=== PATIENT | male | born 1965 | race Caucasian/White ===

== ENCOUNTER 2017-07-27 11:57 | Inpatient (IN) | payer MEDICARE ==
[~2017-07-27] VITALS: Ht 188 cm; Wt 113.4 kg
[~2017-07-27 11:57] MED LIST: AMIT75; AMLO10 PO; AMOX500 PO; BENAML10/2 PO; BUPR150ER PO; CLIN300 PO; CLON.2 PO; CLON.3 PO; CLONIDINE; CRUTCH3 USE; Carvedilol6.25 MG PO; DULO30; DULO60 PO; EPIN.3I IM; FAMO20 PO; Flomax0.4 MG PO; GABA600 PO; HYDACE5 PO; HYDMOR2 PO; KETO10 PO; NAPR500 PO; ONDA4 PO; OXYACE10; OXYACE10 PO; OXYACE5T PO; OXYACE7.5T PO; OXYC10ER PO; OXYC10TA19 PO; OXYC30 PO; OXYC30ER PO; OXYC40ER PO; OXYCODONE PO; PROM25 PO; Percocet 5-3251 EACH PO; RXHYDMOR2 PO; RXOXYACE PO; SULTRIDS PO; TAMS.4ER PO; Ultram50 MG PO
[2017-07-27] MEDS ORDERED: CLON.1 PO (12:21)
[2017-07-27] MEDS ORDERED: Omeprazole20 M1 PO (12:21)
[2017-07-27 12:37] LABS: BASOPHILS ABSOLUTE AUTO 0.03 K/mm3 (0.00-0.23); BASOPHILS PERCENT AUTO 1 % (0-2); EOSINOPHILS ABSOLUTE AUTO 0.15 K/mm3 (0.00-0.68); EOSINOPHILS PERCENT AUTO 3 % (0-6); Hematocrit 39.9 % (37.0-53.0); Hemoglobin 13.6 g/dL (13.5-17.5); IMMATURE GRAN ABSOLUTE AUTO 0.01 K/mm3 (0.00-0.10); IMMATURE GRAN PERCENT AUTO 0 % (0-1); LYMPHOCYTES ABSOLUTE AUTO 1.05 K/mm3 (0.84-5.20); LYMPHOCYTES PERCENT AUTO 23 % (21-46); MONOCYTES ABSOLUTE AUTO 0.32 K/mm3 (0.16-1.47); MONOCYTES PERCENT AUTO 7 % (4-13); Mean Corpuscular HGB 35.7 pg (26.0-34.0); Mean Corpuscular HGB Conc 34.1 g/dL (31.5-36.5); Mean Corpuscular Volume 105 fL (80-100); Mean Platelet Volume 10.9 fL (9.1-12.4); NEUTROPHILS ABSOLUTE AUTO 2.94 K/mm3 (1.96-9.15); NEUTROPHILS PERCENT AUTO 65 % (41-73); Platelet Count 110 K/mm3 (150-400); RDW Coefficient Variation 13.4 % (11.7-14.2); RDW Standard Deviation 51.8 fL (35.1-46.3); Red Blood Cell Count 3.81 M/mm3 (4.30-5.90)
[2017-07-27 12:48] LABS: Alanine Aminotransfer (ALT/SGP 57 U/L (12-78); Albumin, Blood 2.6 g/dL (3.4-5.0); Albumin/Globulin Ratio 0.8 (0.8-1.8); Alk Phos 122 U/L (50-136); Anion Gap 7 mmol/L (6-16); Aspartate Aminotrans (AST/SGOT 73 U/L (12-37); Bilirubin, Total 0.5 mg/dL (0.1-1.0); Blood Urea Nitrogen 14 mg/dL (8-24); Bun/Creatinine Ratio 24.1 (12.0-20.0); CO2, Blood 28 mmol/L (21-32); Chloride, Blood 110 mmol/L (98-108); Creatinine, Blood 0.58 mg/dL (0.60-1.20); Globulin, Blood 3.1 g/dL (2.2-4.0); Glomerular Filtration Rate >60 (60-); Glucose, Blood 105 mg/dL (70-99); Potassium, Blood 4.4 mmol/L (3.5-5.5); Sodium, Blood 145 mmol/L (136-145); Total Protein, Blood 5.7 g/dL (6.4-8.2)
[2017-07-27 13:15] LABS: International Normalized Ratio 1.09; Prothrombin Time Results 11.2 Sec (9.7-11.5)
[2017-07-28 05:22] LABS: Hematocrit 35.1 % (37.0-53.0); Hemoglobin 11.9 g/dL (13.5-17.5)
[2017-07-28 05:51] LABS: Anion Gap 8 mmol/L (6-16); Blood Urea Nitrogen 18 mg/dL (8-24); Bun/Creatinine Ratio 27.1 (12.0-20.0); CO2, Blood 28 mmol/L (21-32); Calcium, Blood 8.1 mg/dL (8.5-10.1); Chloride, Blood 107 mmol/L (98-108); Creatinine, Blood 0.66 mg/dL (0.60-1.20); Glomerular Filtration Rate >60 (60-); Glucose, Blood 181 mg/dL (70-99); Potassium, Blood 4.2 mmol/L (3.5-5.5); Sodium, Blood 143 mmol/L (136-145)
[2017-07-28 11:00] LABS: Hematocrit 34.6 % (37.0-53.0); Hemoglobin 11.7 g/dL (13.5-17.5)
[2017-07-28 16:59] LABS: Hematocrit 35.9 % (37.0-53.0); Hemoglobin 12.1 g/dL (13.5-17.5)
[2017-07-28 23:39] LABS: Hematocrit 34.6 % (37.0-53.0); Hemoglobin 11.7 g/dL (13.5-17.5)
[2017-07-29 05:48] LABS: Hematocrit 34.5 % (37.0-53.0); Hemoglobin 11.8 g/dL (13.5-17.5)
[2017-07-29 11:26] LABS: Hematocrit 35.1 % (37.0-53.0); Hemoglobin 11.8 g/dL (13.5-17.5)
[2017-07-29 18:08] LABS: Hematocrit 37.4 % (37.0-53.0); Hemoglobin 12.4 g/dL (13.5-17.5)
[2017-07-29 23:19] LABS: Hematocrit 37.1 % (37.0-53.0); Hemoglobin 12.5 g/dL (13.5-17.5)
[2017-07-31] MEDS ORDERED: LISI20 PO (11:55)
[2017-07-31] MEDS ORDERED: SUCR1 PO (11:57)
[2017-07-31] MEDS ORDERED: Oxazepam10 MG PO (11:58)
== END 2017-07-31 12:30 | disposition home or self-care (01) | DRG 378 ==
LOC: ER 11:57 → PCU 15:29
PROVIDERS: Emergency Medicine; Internal Medicine; Internal Medicine Gastroenterology
PROC: 0DJ08ZZ Inspection of Upper Intestinal Tract, Via Natural or Artificial Opening Endoscopic (ICD-10-PCS; principal; 2017-07-29 17:15)
DX: K28.4 Chronic or unspecified gastrojejunal ulcer with hemorrhage (principal); F10.239 Alcohol dependence with withdrawal, unspecified; T88.6XXA Anaphylactic reaction due to adverse effect of correct drug or medicament properly administered, initial encounter; K20.9 Esophagitis, unspecified; L50.0 Allergic urticaria; D64.9 Anemia, unspecified; I10 Essential (primary) hypertension; F32.9 Major depressive disorder, single episode, unspecified; K21.9 Gastro-esophageal reflux disease without esophagitis; R13.10 Dysphagia, unspecified; F17.210 Nicotine dependence, cigarettes, uncomplicated; G89.29 Other chronic pain; Z98.84 Bariatric surgery status; Z98.0 Intestinal bypass and anastomosis status; T47.1X5A Adverse effect of other antacids and anti-gastric-secretion drugs, initial encounter; Y92.238 Other place in hospital as the place of occurrence of the external cause
CPT/HCPCS: 80048; 80053; 83690; 83735; 85014; 85018; 85025; 85610; 85730; 86850; 86900; 86901; 93005; 93010; 94644; 96361; 96365; 96372; 96375; 99285; C1751; C9113; J0171; J0360; J0696; J1200; J1630; J2060; J2930; J3010; J3411; J3475; J7030; J7042; J7050; J7120

== ENCOUNTER 2018-04-23 15:23 | Emergency (ER) | payer MEDICARE ==
[~2018-04-23] VITALS: Ht 188 cm; Wt 102.1 kg
[~2018-04-23 15:23] MED LIST changes: +CLON.1 PO; +LISI20 PO; +Omeprazole20 M1 PO; +Oxazepam10 MG PO; +SUCR1 PO; +Vibramycin100 MG PO
== END 2018-04-23 16:06 | disposition left against medical advice (07) ==
LOC: ER 15:23
DX: Z53.21 Procedure and treatment not carried out due to patient leaving prior to being seen by health care provider (principal); R10.9 Unspecified abdominal pain; R53.1 Weakness
CPT/HCPCS: 99283

== ENCOUNTER 2018-06-06 12:15 | Inpatient (IN) | payer OTHER ==
[~2018-06-06] VITALS: Ht 185.4 cm; Wt 109.6 kg
[~2018-06-06 12:15] MED LIST changes: -LISI20 PO; +Roxicodone15 MG PO
[2018-06-06 12:51] LABS: BASOPHILS ABSOLUTE AUTO 0.06 K/mm3 (0.00-0.23); BASOPHILS PERCENT AUTO 1 % (0-2); EOSINOPHILS ABSOLUTE AUTO 0.09 K/mm3 (0.00-0.68); EOSINOPHILS PERCENT AUTO 1 % (0-6); Hematocrit 43.3 % (37.0-53.0); IMMATURE GRAN ABSOLUTE AUTO 0.03 K/mm3 (0.00-0.10); IMMATURE GRAN PERCENT AUTO 0 % (0-1); LYMPHOCYTES ABSOLUTE AUTO 2.71 K/mm3 (0.84-5.20); LYMPHOCYTES PERCENT AUTO 33 % (21-46); MONOCYTES ABSOLUTE AUTO 1.11 K/mm3 (0.16-1.47); MONOCYTES PERCENT AUTO 14 % (4-13); Mean Corpuscular HGB 35.9 pg (26.0-34.0); Mean Corpuscular HGB Conc 32.3 g/dL (31.5-36.5); Mean Corpuscular Volume 111 fL (80-100); NEUTROPHILS ABSOLUTE AUTO 4.11 K/mm3 (1.96-9.15); NEUTROPHILS PERCENT AUTO 51 % (41-73); Platelet Count 205 K/mm3 (150-400); RDW Coefficient Variation 13.3 % (11.7-14.2); White Blood Cell Count 8.11 K/mm3 (4.00-11.30)
[2018-06-06 13:07] LABS: Alanine Aminotransfer (ALT/SGP 40 U/L (12-78); Albumin, Blood 1.5 g/dL (3.4-5.0); Albumin/Globulin Ratio 0.3 (0.8-1.8); Alk Phos 315 U/L (50-136); Anion Gap 7 mmol/L (6-16); Aspartate Aminotrans (AST/SGOT 95 U/L (12-37); Bilirubin, Total 1.2 mg/dL (0.1-1.0); Blood Urea Nitrogen 7 mg/dL (8-24); Bun/Creatinine Ratio 8.8 (12.0-20.0); CO2, Blood 22 mmol/L (21-32); Calcium, Blood 7.7 mg/dL (8.5-10.1); Chloride, Blood 102 mmol/L (98-108); Globulin, Blood 4.7 g/dL (2.2-4.0); Glomerular Filtration Rate >60 (60-); Glucose, Blood 79 mg/dL (70-99); Potassium, Blood 5.6 mmol/L (3.5-5.5); Sodium, Blood 131 mmol/L (136-145); Total Protein, Blood 6.2 g/dL (6.4-8.2); Troponin I <0.015 ng/mL (0.000-0.040)
[2018-06-06] MEDS ORDERED: CHLO25 PO (14:34)
[2018-06-06] MEDS ORDERED: FURO40 PO (14:35)
[2018-06-06] MEDS ORDERED: VITAMIN D350000 UNIT PO (14:36)
[2018-06-06] MEDS ORDERED: FOLI1 PO (14:36)
[2018-06-06 15:07] LABS: Bicarbonate Venous 22.8 mmol/L (24.0-30.0); PCO2 Venous 40.6 mmHg (38-42); PO2 Venous 97.8 mmHg (38-42); pH Blood Venous 7.37 (7.34-7.37)
[2018-06-06 15:33] LABS: Source, Urine Catheter
[2018-06-06 15:47] LABS: Blood, Urine Neg (Neg); Glucose Qualitative, Urine Neg (Neg); Ketones, Urine 1+ (Neg); Leukocyte Esterase, Urine 1+ (Neg); Nitrite, Urine Neg (Neg); Protein, Urine 1+ (Neg); Urobilinogen, Urine 1+ (Normal)
[2018-06-06 15:53] LABS: International Normalized Ratio 1.47
[2018-06-06] MEDS ORDERED: LISI20 PO (15:53)
[2018-06-06] MEDS ORDERED: B-1100 MG PO (15:54)
[2018-06-06 15:55] LABS: Appearance, Urine Clear (Clear); Bilirubin, Urine 1+ (Neg); Color, Urine Yellow (P-Yellow)
[2018-06-06 15:57] LABS: Bacteria Few /hpf; Hyaline Casts 0-2 /lpf (0-2); Squamous Epithelial Cells Few /hpf (Few); White Blood Cells, Urine 0-2 /hpf (0-5)
--- NOTE | 2018-06-06 19:26 | NUR ---
Summary/Admit: Assumed care of pt at approx 1600. Hypotensive. Pt receiving albumin and NS. Pt is A&Ox4. Assessing for alcohol abuse per pt report of drinking 3 16oz glasses of wine per day including yesterday 06/05. Pt needs assistance with repositioning Q2H. Called critical lactic acid and hypotensive BP to Dr. Núñez who ordered additional 500mL bolus and lactic will be rechecked by lab. See shift assessment for detailed assessment. 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 Pt currently resting in bed with call light within reach. Denies any further questions, complaints or requests at this time. Report given to bisi MURILLO.
[2018-06-06] MEDS ORDERED: CYAN1000I IM (23:00)
[2018-06-07 06:02] LABS: BASOPHILS ABSOLUTE AUTO 0.02 K/mm3 (0.00-0.23); BASOPHILS PERCENT AUTO 0 % (0-2); EOSINOPHILS ABSOLUTE AUTO 0.07 K/mm3 (0.00-0.68); EOSINOPHILS PERCENT AUTO 2 % (0-6); Hematocrit 32.8 % (37.0-53.0); Hemoglobin 10.8 g/dL (13.5-17.5); IMMATURE GRAN ABSOLUTE AUTO 0.01 K/mm3 (0.00-0.10); IMMATURE GRAN PERCENT AUTO 0 % (0-1); LYMPHOCYTES ABSOLUTE AUTO 1.44 K/mm3 (0.84-5.20); LYMPHOCYTES PERCENT AUTO 32 % (21-46); MONOCYTES ABSOLUTE AUTO 0.55 K/mm3 (0.16-1.47); MONOCYTES PERCENT AUTO 12 % (4-13); Mean Corpuscular HGB 35.8 pg (26.0-34.0); Mean Corpuscular HGB Conc 32.9 g/dL (31.5-36.5); Mean Corpuscular Volume 109 fL (80-100); NEUTROPHILS ABSOLUTE AUTO 2.47 K/mm3 (1.96-9.15); NEUTROPHILS PERCENT AUTO 54 % (41-73); Platelet Count 150 K/mm3 (150-400); RDW Coefficient Variation 13.3 % (11.7-14.2); RDW Standard Deviation 53.9 fL (35.1-46.3); Red Blood Cell Count 3.02 M/mm3 (4.30-5.90); White Blood Cell Count 4.56 K/mm3 (4.00-11.30)
[2018-06-07 06:24] LABS: Alanine Aminotransfer (ALT/SGP 26 U/L (12-78); Albumin/Globulin Ratio 0.7 (0.8-1.8); Alk Phos 208 U/L (50-136); Anion Gap 7 mmol/L (6-16); Aspartate Aminotrans (AST/SGOT 51 U/L (12-37); Bilirubin, Total 1.1 mg/dL (0.1-1.0); Blood Urea Nitrogen 7 mg/dL (8-24); Bun/Creatinine Ratio 8.5 (12.0-20.0); CO2, Blood 25 mmol/L (21-32); Calcium, Blood 7.6 mg/dL (8.5-10.1); Chloride, Blood 104 mmol/L (98-108); Creatinine, Blood 0.83 mg/dL (0.60-1.20); Globulin, Blood 2.9 g/dL (2.2-4.0); Glomerular Filtration Rate >60 (60-); Glucose, Blood 75 mg/dL (70-99); Magnesium, Blood 1.9 mg/dL (1.6-2.4); Potassium, Blood 4.3 mmol/L (3.5-5.5); Sodium, Blood 136 mmol/L (136-145); Total Protein, Blood 4.9 g/dL (6.4-8.2)
--- NOTE | 2018-06-07 06:48 | NUR ---
SUMMARY PT IS LABILE. HE CAN BE IRRITABLE AND ASKING FOR PAIN MEDS THEN ASLEEP BEFORE YOU GET BACK TO THE ROOM WITH MEDS. HE IS VERY WEAK T/O. GOT HIM UP TO VOID AT THE SIDE OF THE BED BUT PT'S KNEES WOULD BUCKLE. EDUCATED PT THAT HE NEEDS TO USE THE BEDPAN. GAVE PYRIDIUM LAST NIGHT FOR BURNING URINATION AND PT DID NOT COMPLAIN ABOUT IT THE REST OF THE NIGHT. GAVE LIBRIUM DURING THE NIGHT FOR CIWA 8 AND PT WAS DEMANDING LIBRIUM. CALL LIGHT IN REACH AND PT CAN USE IT APPROPRIATELY.
--- NOTE | 2018-06-07 07:15 | NUR ---
AM NOTE. ASSUMED CARE OF PT APROX 0700, PT IS A&O BUT DROWSY AND FALLS ALSEEP QUCKILY. PT WAS ADMITTED FOR ENCEPHALOPATHY, THIS HAS IMPROVED. HEART MONITOR INTACT, NSR IN THE 90'S, PT'S BP 101/62. PT HAS GENERALIZED EDEMA T/O, BLE ARE 3+. L/S CLEAR T/O, PT IS 95% ON RA. BT PRESENT AND HYPOACTIVE, ABD IS SOFT AND NONTENDER TO PALP. PT HAS SEVERE ASCITES, ABD IS FIRM AND TENDER TO PALP. PER THE PT'S SISTER THE PT IS "VERY SENSITIVE TO PAIN." THIS HAS BEEN CONFIRMED BY THE PT BEHAVIOUR. CALL LIGHT IN REACH, BED IS LOCKED AND LOW WILL CONTINUE TO MONITOR.
--- NOTE | 2018-06-07 14:40 | NUR ---
PT UPDATE... PT TOLD THIS RN THAT HE WAS DRINKING 3L OF WINE AND 3-4 24 OZ CANS OF BEER A DAY. PT STATED THAT HIS LAST DRINK WAS ON 06/05. SPOKE W/PT'S , SHE STATED THAT HE HAD BEEN MIXING VODKA WITH THE WINE EVERY NIGHT WELL. PT TOLD THIS RN THAT HIS DOCTOR GAVE HIM "LIBRIUM EVERY 2 HOURS AT HOME."
--- NOTE | 2018-06-07 15:06 | NUR ---
PT UPDATE... PT HAD A PARACENTESIS DONE IN THE ROOM, PT TOLERATED THIS WELL. 4L WAS REMOVED. PT'S VSS. AT THE BEDSIDE. CALL LIGHT IN REACH, BED IS LOCKED AND LOW WILL CONTINUE TO MONITOR
[2018-06-07 15:40] LABS: Automated BF WBC Count 0.073 K/mm3 (0-999); Body Fluid WBC Count 73 /mm3 (0-999)
[2018-06-07 15:55] LABS: RBC Count, Body Fluid 38 /mm3 (0-0)
[2018-06-07 15:56] LABS: Appearance, Body Fluid Clear (Clear); Color, Body Fluid L Yellow (None-Yellow)
[2018-06-07 16:15] LABS: Albumin, Body Fluid 0.5 g/dL; Glucose, Body Fluid 91 mg/dL; Lactate Dehydrogenase, Body Fl 33 U/L; Protein, Body Fluid 1.1 g/dL; Triglycerides, Body Fluid 33 mg/dL
[2018-06-07 16:16] LABS: Total Cell Count, Body Fluid 100; pH, Body Fluid 7.5
--- NOTE | 2018-06-07 18:42 | NUR ---
SHIFT SUMMARY. NO ACUTE CHANGES NOTED, PT HAD PARACENTISIS THIS AFTEROON, 4L REMOVED, PT TOLERATED IT WILL. PT HAS BEEN DROWSY ALL SHIFT, CWIA WAS 4. PT MEDICATED PER EMAR FOR ETOH WD AND PAIN. PT HAS STATED IS EXTREAMELY UNHAPPY THAT HE IS NOT GETTING HIS "HOME DOSE" OF PAIN MEDICATION AND LIBRIUM. PT HAS STATED THAT HE WAS GETTING 50MG OF LIBRIUM Q 2 HRS AT HOME. PT HAS HAD FAIMILY AT THE BEDSIDE ALL DAY. PT'S VS HAVE BEEN STABLE T/O SHIFT. PT DENIES ANY CHEST PAIN/PRESSURE, N/V OR INCREASED SOB. WILL CONTINUE TO MONITOR UNTIL REPORT IS GIVEN TO ONCKIMI MURILLO.
--- NOTE | 2018-06-07 20:22 | NUR ---
PT RESTING IN BED. AROUSES FROM SLEEP EASILY TO VOICE. ANSWERS QUESTIONS APPROPRIATELY. WEAK T/O. ENCOURAGING PT TO MOVE TOLERATED TO BUILD STRENGTH. ASSISTING WITH REPOSITIONING MORE THAN LAST NIGHT. NO SIGN OF DISTRESS. CALL LIGHT IN REACH.
[2018-06-08 03:36] LABS: BASOPHILS ABSOLUTE AUTO 0.03 K/mm3 (0.00-0.23); BASOPHILS PERCENT AUTO 1 % (0-2); EOSINOPHILS ABSOLUTE AUTO 0.08 K/mm3 (0.00-0.68); EOSINOPHILS PERCENT AUTO 2 % (0-6); Hematocrit 35.3 % (37.0-53.0); Hemoglobin 11.5 g/dL (13.5-17.5); IMMATURE GRAN ABSOLUTE AUTO 0.02 K/mm3 (0.00-0.10); IMMATURE GRAN PERCENT AUTO 0 % (0-1); LYMPHOCYTES ABSOLUTE AUTO 1.42 K/mm3 (0.84-5.20); LYMPHOCYTES PERCENT AUTO 28 % (21-46); MONOCYTES PERCENT AUTO 12 % (4-13); Mean Corpuscular HGB 35.3 pg (26.0-34.0); Mean Corpuscular HGB Conc 32.6 g/dL (31.5-36.5); Mean Corpuscular Volume 108 fL (80-100); Mean Platelet Volume 10.9 fL (9.1-12.4); NEUTROPHILS ABSOLUTE AUTO 2.98 K/mm3 (1.96-9.15); NEUTROPHILS PERCENT AUTO 58 % (41-73); Platelet Count 153 K/mm3 (150-400); RDW Coefficient Variation 13.2 % (11.7-14.2); Red Blood Cell Count 3.26 M/mm3 (4.30-5.90); White Blood Cell Count 5.13 K/mm3 (4.00-11.30)
[2018-06-08 03:54] LABS: Alanine Aminotransfer (ALT/SGP 24 U/L (12-78); Albumin, Blood 2.2 g/dL (3.4-5.0); Albumin/Globulin Ratio 0.7 (0.8-1.8); Alk Phos 201 U/L (50-136); Anion Gap 6 mmol/L (6-16); Aspartate Aminotrans (AST/SGOT 44 U/L (12-37); Bilirubin, Total 0.9 mg/dL (0.1-1.0); Blood Urea Nitrogen 7 mg/dL (8-24); Bun/Creatinine Ratio 8.9 (12.0-20.0); CO2, Blood 28 mmol/L (21-32); Calcium, Blood 7.8 mg/dL (8.5-10.1); Chloride, Blood 106 mmol/L (98-108); Creatinine, Blood 0.79 mg/dL (0.60-1.20); Globulin, Blood 3.1 g/dL (2.2-4.0); Glomerular Filtration Rate >60 (60-); Glucose, Blood 90 mg/dL (70-99); Potassium, Blood 4.2 mmol/L (3.5-5.5); Sodium, Blood 140 mmol/L (136-145); Total Protein, Blood 5.3 g/dL (6.4-8.2)
--- NOTE | 2018-06-08 06:13 | NUR ---
SUMMARY PT RESTING IN BED. MOOD IS LABILE. HAVE BEEN GIVING OXYCODONE AND FENTANYL FOR PAIN "ALL OVER". ALSO GIVING LIBRIUM PER PT'S REQUEST. CIWA HAS BEEN BELOW 8. CONTINUES TO BE WEAK. WANTS TO GET OOB TO VOID BUT PT WILL NOT EVEN LIFT HIS OWN LEG ON THE BED. NO SIGN OF DISTRESS. CALL LIGHT IN REACH.
--- NOTE | 2018-06-08 12:48 | NUR ---
0800...PT IS A/O BUT C/O PAIN AND DISTRESS IN MOST PLACES BELOW RIB CAGE AND SITES CHANGE. PT INDICATES HE HAS BEEN GETTING MORE PAIN MEDS AT HOME AND IS REQUESTNG MORE MEDS. PT FAMILY IS IN ROOM. PT MEDS PER EMAR WITH ASSISTANCE FROM RANI MURILLO.
--- NOTE | 2018-06-08 12:51 | NUR ---
1050 PT WAS REQUESTING PAIN MED BUT AFTER CLARRIFICATION WITH DR GONZALES AND OBTAINING MEDS PT WAS ASLEEP, NO MEDS GIVE.
--- NOTE | 2018-06-08 12:53 | NUR ---
1250 PT AGAIN REQUESTING PAIN MEDS WITH SAME TYPE OF PAIN ISSUES NOTED BEFORE. PO MEDS GIVEN... SEE EMAR. PT STOOLED SOFT UNFORMED STOOL AND VOIDED. PT IS TAKING PO WELL AND TABS WERE NO PROBLEM. VS NOTED. OLD RUQ PARACENTESIS SITE WAS OOZING AND ADSORBANT DSG PLACE. PT REFUSING LUNCH AT THIS TIME. REMAINS IN ROOM. CALLED TO GIVE REPORT AND PCU WILL NEED TO RETURN THE CALL.
--- NOTE | 2018-06-08 13:33 | NUR ---
REPORT CALLED 1325 TO MAYURI STUDENT NURSE, WILL TRANSFER PT TO PCU-2 [facility].
--- NOTE | 2018-06-08 16:25 | NUR ---
TRANSFER NOTE; ASSUMED CARE OF PT AT 1515, RECEIVED REPORT FROM NANETTE GLUE DRIER OPERATOR. PT ARRIVED VIA BED AND FAMILY WAS ORIENTED TO ROOM, AND STAFF. BED AT LOWEST LEVEL AND CALL LIGHT IS WITHIN REACH
--- NOTE | 2018-06-08 18:38 | NUR ---
SHIFT SUMMARY; PT IS ALERT AND ORIENTED TO SELF, FAMILY, AND SURROUDINGS, HOWEVER, IS UNAWARE OF TIME. IS COOPRATIVE AND ABLE TO FOLLOW DIRECTIONS. LAST CIWA SCORE WAS 8. PT IS CURRENTLY RUNNING IN NSR WITH HR OF 86.PT HAS BEEN COMPLAINING OF PAIN TO HIS ABDOMEN, HIPS AND FEET. PT HAS BEEN MEDICATED PER EMAR AND SEEMS TO HAVE BEEN EFFECTIVE. PT WAS ALSO COMPLAINING OF NAUSEA AND WAS THEN MEDICATED WITH ZOFRAN, WHICH HELPED SETTLE HIS STOMACH. PT HAS PITTING BLE EDEMA AND LEGS ARE BEING ELEVATED WITH PILLOWS. PT RECEIVED A PARACENTHISIS YESTERDAY 06/07/18, AND BANDAGE TO COVER UP INSERTION SITE WAS CHANGED W/ A MEPILEX DRESSING. WILL CONTINUE TO MONITOR STAUS UNTIL REPORT IS GIVEN TO BULK SEALER OPERATOR. BED AT LOWEST LEVEL, CALL LIGHT WITHIN REACH.
--- NOTE | 2018-06-09 02:17 | NUR ---
RESUMED CARE AT 1900 FROM CHIDI BAKER AND SN MAYURI. PT IS ON FULL LIQUID DIET; TAKES SMALL PILLS PO, LARGER PILLS TO BE CRUSHED; PT IS BEDFAST; EGG CRATE ADDED TO MATTRESS FOR COMFORT; USES URINAL IN BED WITH ASSISTANCE; O2 > 95% RA; REPOSITIONED Q 2 HRS AND MORE FREQUENTLY FOR PAIN RELIEF; PAIN MEDS GIVEN PER ORDERS; CIWA Q 4; CALL LIGHT WITHIN REACH; BED IN LOWEST POSITION; WILL CONTINUE TO MONITOR AND ASSESS UNTIL HANDOFF TO DAY SHIFT RN.
[2018-06-09 05:04] LABS: BASOPHILS ABSOLUTE AUTO 0.02 K/mm3 (0.00-0.23); BASOPHILS PERCENT AUTO 1 % (0-2); EOSINOPHILS ABSOLUTE AUTO 0.06 K/mm3 (0.00-0.68); EOSINOPHILS PERCENT AUTO 2 % (0-6); Hematocrit 33.1 % (37.0-53.0); Hemoglobin 11.1 g/dL (13.5-17.5); IMMATURE GRAN PERCENT AUTO 0 % (0-1); LYMPHOCYTES ABSOLUTE AUTO 1.28 K/mm3 (0.84-5.20); LYMPHOCYTES PERCENT AUTO 31 % (21-46); MONOCYTES ABSOLUTE AUTO 0.48 K/mm3 (0.16-1.47); MONOCYTES PERCENT AUTO 12 % (4-13); Mean Corpuscular HGB 35.9 pg (26.0-34.0); Mean Corpuscular HGB Conc 33.5 g/dL (31.5-36.5); Mean Corpuscular Volume 107 fL (80-100); Mean Platelet Volume 10.9 fL (9.1-12.4); NEUTROPHILS ABSOLUTE AUTO 2.29 K/mm3 (1.96-9.15); NEUTROPHILS PERCENT AUTO 55 % (41-73); Platelet Count 134 K/mm3 (150-400); RDW Coefficient Variation 13.4 % (11.7-14.2); RDW Standard Deviation 53.2 fL (35.1-46.3); Red Blood Cell Count 3.09 M/mm3 (4.30-5.90); White Blood Cell Count 4.13 K/mm3 (4.00-11.30)
[2018-06-09 05:27] LABS: Alanine Aminotransfer (ALT/SGP 21 U/L (12-78); Albumin, Blood 2.1 g/dL (3.4-5.0); Albumin/Globulin Ratio 0.8 (0.8-1.8); Alk Phos 165 U/L (50-136); Anion Gap 4 mmol/L (6-16); Aspartate Aminotrans (AST/SGOT 38 U/L (12-37); Bilirubin, Total 1.2 mg/dL (0.1-1.0); Blood Urea Nitrogen 6 mg/dL (8-24); Bun/Creatinine Ratio 9.4 (12.0-20.0); CO2, Blood 28 mmol/L (21-32); Calcium, Blood 7.7 mg/dL (8.5-10.1); Chloride, Blood 108 mmol/L (98-108); Creatinine, Blood 0.64 mg/dL (0.60-1.20); Globulin, Blood 2.8 g/dL (2.2-4.0); Glomerular Filtration Rate >60 (60-); Glucose, Blood 91 mg/dL (70-99); Magnesium, Blood 1.7 mg/dL (1.6-2.4); Sodium, Blood 140 mmol/L (136-145); Total Protein, Blood 4.9 g/dL (6.4-8.2)
--- NOTE | 2018-06-09 06:37 | NUR ---
PT DID NOT SLEEP WELL; C/O PAIN; REPOSITIONED FREQUENTLY AND ADMINISTER MEDICATION PER ORDERS; WILL CONTINUE TO MONITOR AND ASSESS UNTIL HANDOFF TO DAY SHIFT RN.
--- NOTE | 2018-06-09 12:38 | NUR ---
BEGINING OF SHIFT : ASSUMED CARE OF PT AT 0700, RECIVED REPORT FROM LENORA MURILLO. UPON ENTERING ROOM, PT WAS A/O AND SITTING IN CHAIR. PT HAS BEEN AMBULATED TO [facility] WITH 2 PERSON MAX ASSISTANCE. PT HAS NEEDED REPOSITIONING EVERY HOUR. PT IS ABLE TO FOLLOW DIRECTIONS AND IS COOPRATIVE. PT HAS BEEN COMPLAINING OF BLE AND HIP PAIN T/O THE NIGHT AND THIS MORNING. PT HAS BEEN MEDICATIED FOR PAIN PER EMAR. PT IS CURRENTLY ON RA, WITH SATURATIONS ABOVE 90 PERCENT. PT IS LESS DIOPHERETIC TODAY AND IS NOT COMPLAING OF SOB. PT TELE CONFIRMS NSR WITH HR IN THE 80'S. PT WILL BE SEEN BY PALLATIVE CARE TODAY. WILL CONTINUE TO MONITOR FOR CHANGES. FAMILY IN ROOM, CALL LIGHT WITHIN REACH
--- NOTE | 2018-06-09 13:05 | NUR ---
PATIENT PERMISSION PATIENT GAVE THIS STUDENT NURSE PERMISSION TO PROVIDE CARE ON 06/10/2018 FROM [id number].
--- NOTE | 2018-06-09 18:28 | NUR ---
SHIFT SUMMARY: PT IS STATING TO BE HAVING TROUBLE URINATING. HAVE BEEN ENCOURAGING HIM TO TRY AND USE THE URINAL. BLADDER SCAN STATES 13 ML'S. PT SLEPT DURING THE AFTERNOON AND HAS NOT REQUIRED PAIN MEDS. PT SEEMS DROWSY BUT IS EASY TO AROUSE. PT HAS BEEN REPOSITIONED EVERY TWO HOURS AND HAS AMBULATED TO THE COMMODE TWICE WITH 2 PERSON MAX ASSIST PO INTAKE HAS BEEN POOR TODAY. CIWA SCORES HAVE BEEN LOW AND NO NEED TO LIBRIUM WAS INDICATED. WILL CONTINUE TO MONITOR PT UNTIL NEXT SHIFT IS GIVEN REPORT, BED AT LOWEST LEVEL CALL LIGHT WITHIN REACH.
--- NOTE | 2018-06-09 21:37 | NUR ---
ASSUMED CARE OF PT AT APPROXIMATELY 1945. PT ALERT AND ORIENTED TO SELF, SITUATION, TIME, AND FOLLOWING DIRECTIONS. VS STABLE. PT ABLE TO VOID. FAMILY AT BEDSIDE. PT COMPLAINS OF PAIN IN HIS LOWER BACK THAT WAS RELIEVED WITH REPOSITIONING. REPORT GIVEN TO KEEGAN MURILLO.
[2018-06-10 06:15] LABS: BASOPHILS ABSOLUTE AUTO 0.02 K/mm3 (0.00-0.23); BASOPHILS PERCENT AUTO 0 % (0-2); EOSINOPHILS ABSOLUTE AUTO 0.08 K/mm3 (0.00-0.68); EOSINOPHILS PERCENT AUTO 1 % (0-6); Hematocrit 37.4 % (37.0-53.0); Hemoglobin 12.1 g/dL (13.5-17.5); IMMATURE GRAN ABSOLUTE AUTO 0.01 K/mm3 (0.00-0.10); IMMATURE GRAN PERCENT AUTO 0 % (0-1); LYMPHOCYTES ABSOLUTE AUTO 1.32 K/mm3 (0.84-5.20); LYMPHOCYTES PERCENT AUTO 24 % (21-46); MONOCYTES ABSOLUTE AUTO 0.55 K/mm3 (0.16-1.47); MONOCYTES PERCENT AUTO 10 % (4-13); Mean Corpuscular HGB 35.4 pg (26.0-34.0); Mean Corpuscular HGB Conc 32.4 g/dL (31.5-36.5); Mean Corpuscular Volume 109 fL (80-100); Mean Platelet Volume 10.9 fL (9.1-12.4); NEUTROPHILS ABSOLUTE AUTO 3.55 K/mm3 (1.96-9.15); NEUTROPHILS PERCENT AUTO 64 % (41-73); Platelet Count 146 K/mm3 (150-400); RDW Coefficient Variation 13.5 % (11.7-14.2); Red Blood Cell Count 3.42 M/mm3 (4.30-5.90); White Blood Cell Count 5.53 K/mm3 (4.00-11.30)
--- NOTE | 2018-06-10 06:25 | NUR ---
SHIFT SUMMARY PT RESTING IN ROOM AT THIS TIME. PT WAS VERY PAINFUL T/O NIGHT DID NOT SLEEP WELL AND WAS INFORMATICA LIGHT MULITPLE TIMES ASKING FOR PAIN MEDS. PT WAS REPOSITIONED MULTIPLE TIMES FOR COMFORT, AND KPAD WAS APPLIED IN AN ATTEMPT TO MANAGE PAIN BETTER. PT REQUESTED TO GET UP TO RECLINER AT 0400. PT TO RECLINER USING GAIT BELT, TOLERATED WELL. TAB ALARM ON, PT SITTING ON DONUT PILLOW FOR PREVIOUS COCCY FX. NO OTHER CHANGES IN STATUS T/O NIGHT. DENIES SOB. CALL LIGHT IS IN REACH. PT WAS MEDICATED FOR PAIN AND IS NOW SLEEPING.
[2018-06-10 06:34] LABS: Alanine Aminotransfer (ALT/SGP 21 U/L (12-78); Albumin, Blood 2.4 g/dL (3.4-5.0); Albumin/Globulin Ratio 0.7 (0.8-1.8); Alk Phos 162 U/L (50-136); Anion Gap 6 mmol/L (6-16); Aspartate Aminotrans (AST/SGOT 35 U/L (12-37); Bilirubin, Total 0.8 mg/dL (0.1-1.0); Blood Urea Nitrogen 7 mg/dL (8-24); Bun/Creatinine Ratio 10.2 (12.0-20.0); CO2, Blood 30 mmol/L (21-32); Chloride, Blood 106 mmol/L (98-108); Creatinine, Blood 0.69 mg/dL (0.60-1.20); Globulin, Blood 3.3 g/dL (2.2-4.0); Glomerular Filtration Rate >60 (60-); Glucose, Blood 99 mg/dL (70-99); Sodium, Blood 142 mmol/L (136-145); Total Protein, Blood 5.7 g/dL (6.4-8.2)
--- NOTE | 2018-06-10 12:01 | NUR ---
BEGINNING OF SHIFT Assumed care at 0700. Report recieved from Katy MURILLO. Pt on room air. Laying in recliner. Pt states pain from hips to feet. States "neuropathy" and describes it is sharp and burning. Pt has edema from waist to feet, however his penis and scrotum are free of edema. Pt educated on diuresis and how decrease in edema should alleviate pain. Pt verbalizes understanding. Pt cooperative with care. Pt on telemetry at beginning of shift. At this time, pt is medical floor status and telemetry has been removed. Call light in reach. Pt denies need at this time.
--- NOTE | 2018-06-10 12:14 | NUR ---
SKIN CARE During skin assessment, powder added to abdominal and perineal skin folds. These areas were cleaned prior to addition of powder. Folds were moist, however there was no evidence of yeast. Pt educated on reason for powder application, he verbalized understanding.
--- NOTE | 2018-06-10 17:59 | NUR ---
Initial palliative care consult: Pepe is a 52 year old with a history of HTN, cirrohsis of the liver, ETOH, GERD, and gastric surgeries and chronic dysphagia s/p dilation. He reports he would like to have a GI surgery revision if this is possible to correct his dysphagia problems related to what he says are a stricture and scar tissue. Pepe reports that he was forced to quit working in the [employer] several years ago due to a disability. 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 He reports he has always been a stay up at night and sleep in the day person. He reports that at home he spends greater that 75% of his time sitting in the chair. He is having more difficulty walking and has had some falls at home. Met with Pepe in his room this afternoon. Assisted him from chair to bed with two person assist. Pt c/o hip and leg pain 10/21. He is very edematous with anasarca and BLE pitting edema. He had a paracentesis performed yesterday and 4 L of fluid was removed. He states that the edema is getting better but he still remains very swollen. He was started on neurontin yesterday which he states helps his pain but doesn't get him comfortable. Discussed what his goals are: He would like to get well enough to have the GI surgery to repair his problem. He reports that the past several years he can only ingest foods in liquid form (boost, milkshakes and the like.) He reports this diet gets very boring and he doesn't feel much like eating. Will plan to request a fish roe processor consult for pt as his liquid diet and increased protein needs. He reports his edema issue is new and that the paracentesis he had yesterday is the first one he has ever had. He confirms his full code status, but reports that he would not want to be kept alive on machines correction. His sister entered the room during our conversation and Pepe drifted off to sleep while I spoke with his sister. She states that Pepe has struggled with depression ever since his GI surgery has restricted him. She reports he was a social drinker prior to his GI surgery, but she stated that his alcohol intake greatly increased after his GI surgery complications. She reports she lives next door to Pepe. Pepe lives with his and two sons. Pepe's sister states that Pepe's is an active alcoholic. She stated that Pepe's drinking has decreased from a 1/5 per day about a year ago to 4-5 20 oz. drinks per day now. She states he has mentioned that he would like to stop drinking but has never been successful at becoming sober. She states Pepe has tried medication for his depression but she states that she didn't think he took the medication long enough to see if it would work. Spoke with Dr. Davila re: concerns for depression, pain managment and nutritional needs. Dr. Davila stated she would consider changing doses of neurontin possibly tomorrow as this med was started yesterday. Pt may benefit from a higher dose of neurontin at bedtime for better pain relief and sleep at night. Dr. Davila stated that she would address Pepe's depression tomorrow. Pepe did wake up at the end of the visit and state that he had seen a psychologist only once which he felt didn't felt and that he had taken many anti-depressants "That didn't work." When asked how long he had taken them he said "Long enough to know they didn't work." Dr. Davila was agreeable to have a dietary consult placed for nutritional needs. Pepe has a long road ahead of him for recovery. He stated the liver problem is new and he didn't know much about it. His sister is hopeful that he will be able to go to rehab after discharge before he is able to go home and follow up with GI for further care. PC will continue to see pt for disease education and management, symptom management and advanced care planning.
--- NOTE | 2018-06-10 18:54 | NUR ---
SHIFT SUMMARY Pt has remained awake for majority of shift. Pt voiced frustration that he has not been receiving medications for alcohol withdrawal. This RN discussed CIWA scale and indication for medication. This RN also discussed pt's CIWA scores and how they did not indicate the medication was appropriate. This RN discussed sedation and how pain meds would be withheld if pt was sedated. Pt verbalized frustration, but stated he understood why he was not getting librium. Pt's sister spent majority of shift at the pt's bedside. Pt's spouse was not seen visiting this shift. Pt's sister asked if the time that his pain medication becomes available could be written on the whiteboard. This RN stated that this was possible, however the goal is for the pt to taper off opiates and achieve pain control with gabapentin. The sister stated that the pt had been taking oxycodone at home. This RN discussed pt's sedation on admit and narcan administration. Pt's sister verbalized understanding for imporatance of limiting opiate intake. Pt's sister asked if pt could go outside. This RN stated that this was allowed, as pt is not on telemetry. Will continue to monitor until care handoff and bedside report.
--- NOTE | 2018-06-10 19:33 | NUR ---
LEAKAGE FROM PARCENTESIS SITE Pt continues to have leakage from paracentesis site. Dressing was changed at 1600 and ABD pad was placed to absorb drainage. While giving bedside report to Rakesh MURILLO, ABD pad was entirely saturated. This RN removed dressing and placed ostomy wafer and drainage bag over site. Rakesh MURILLO updated.
[2018-06-11 03:46] LABS: BASOPHILS ABSOLUTE AUTO 0.04 K/mm3 (0.00-0.23); BASOPHILS PERCENT AUTO 0 % (0-2); EOSINOPHILS ABSOLUTE AUTO 0.09 K/mm3 (0.00-0.68); EOSINOPHILS PERCENT AUTO 1 % (0-6); Hematocrit 31.6 % (37.0-53.0); Hemoglobin 10.1 g/dL (13.5-17.5); IMMATURE GRAN ABSOLUTE AUTO 0.03 K/mm3 (0.00-0.10); IMMATURE GRAN PERCENT AUTO 0 % (0-1); LYMPHOCYTES ABSOLUTE AUTO 2.41 K/mm3 (0.84-5.20); LYMPHOCYTES PERCENT AUTO 26 % (21-46); MONOCYTES ABSOLUTE AUTO 0.96 K/mm3 (0.16-1.47); MONOCYTES PERCENT AUTO 11 % (4-13); Mean Corpuscular HGB 35.3 pg (26.0-34.0); Mean Corpuscular Volume 111 fL (80-100); Mean Platelet Volume 10.9 fL (9.1-12.4); NEUTROPHILS ABSOLUTE AUTO 5.61 K/mm3 (1.96-9.15); NEUTROPHILS PERCENT AUTO 61 % (41-73); Platelet Count 246 K/mm3 (150-400); RDW Coefficient Variation 13.2 % (11.7-14.2); RDW Standard Deviation 54.1 fL (35.1-46.3); Red Blood Cell Count 2.86 M/mm3 (4.30-5.90); White Blood Cell Count 9.14 K/mm3 (4.00-11.30)
[2018-06-11 04:00] LABS: Anion Gap 4 mmol/L (6-16); Blood Urea Nitrogen 10 mg/dL (8-24); CO2, Blood 29 mmol/L (21-32); Calcium, Blood 7.5 mg/dL (8.5-10.1); Chloride, Blood 109 mmol/L (98-108); Creatinine, Blood 0.77 mg/dL (0.60-1.20); Glomerular Filtration Rate >60 (60-); Glucose, Blood 104 mg/dL (70-99); Magnesium, Blood 1.8 mg/dL (1.6-2.4); Potassium, Blood 4.6 mmol/L (3.5-5.5); Sodium, Blood 142 mmol/L (136-145)
[2018-06-11 04:18] LABS: International Normalized Ratio 1.26; Prothrombin Time Results 13.1 Sec (9.7-11.5)
--- NOTE | 2018-06-11 06:03 | NUR ---
LATE ENTRY 0345 AT START OF SHIFT PT TOOK PO MEDS WITH WATER. ON 2ND MED PT REPORTED THAT IT SEEMED THE "PILL GOT HUNG UP". PT DRANK MORE WATER BUT STATED THAT IT WAS STILL STUCK AND HE FELT LIKE GAGGING. PT VOMITED UP THE WATER HE HAD JUST DRANK BUT NO PILLS WERE NOTICED BY THIS RN. THE LIQUID WAS BLOOD TINGED AT THE TIME. PT REPORTED NO HAVING NOTICED BLOOD DURING THIS ADMIT BUT STATES THIS ISN'T AN UNUSUAL OCCURENCE DUE TO HIS HX OF ESOPHOGEAL STRICTURE. PT HAD NO OTHER BLOODY EMESIS UNTIL AROUND 0300 WHEN PT COMPLAINED OF NAUSEA WITH PAIN OF HIS UPPER MID ABDOMEN. GAVE PT ZOFRAN, HOWEVER AT THAT TIME PT STARTED VOMITING DARK BLOOD. NAUSEA UNRELIEVED BY ZOFRAN AND PT HAD ROUGHLY 200 ML BLOODY OUTPUT. VITALS SHOWED DECREASED BP, ELEVATED HR IN 120'S, AND O2 SATS IN 80'S. PLACED PT ON 4L O2 VIA NC. SPOKE WITH DR DEY WHO ORDERED PT TO BE TRANSFERRED TO ICU. PT WAS ALERT AND ORIENTED THROUGH THE EVENT. DURING TRANSPORT TO ICU, PT CONTINUED TO VOMIT BLOOD. REPORT GIVEN TO CHIDI SPAIN IN ICU.
--- NOTE | 2018-06-11 07:45 | NUR ---
SHIFT ASSESSMENT PT TRANSFERRED FROM PCU 02 TO ICU 13 AT 0320 D/T HEMATEMESIS. PT A&O X4, OCC SLOW TO RESPOND, OCC FORGETFUL, OCC REPEATS QUESTIONS, RESONDS TO VERBAL STIMULI, OPENS EYES SPONT, FOLLOWS COMMANDS. PT FELL ASLEEP AT 0630 THIS AM. PT C/O CHRONIC HX OF N/T IN FINGERS AND BLE'S. PT KULKARNI. WEAKNESS NOTED. PT ASSISTED WITH TURNS. PT REMAINED IN BED. PT C/O ABD PAIN. MEDICATED WITH FENT 50 MCG X1 AND UTILIZED NONPHARM METHODS. REFRAINED FROM ADMINSITERING ADDITIONAL PAIN MEDS D/T BLOOD LOSS AND POTENTIAL WORSENING HYPOTENSION. LUNGS CLEAR, DIMINISHED LOWER LOBES UPON TRANSFER TO ICU. SLIGHTLY COARSE UPPER LOBES, DIMINISHED LOWER LOBES AT THIS TIME. SHALLOW BREATHING. PT ON 4L NC. PT DENIES USING HOME OXYGEN. OXY SAT >90%. RR 14 TO 30'S. DENIES SOB. OCC PRODUCTIVE MOIST COUGH - COPIOUS AMOUNTS OF THICK BLOODY SECRETIONS. AFEBRILE. ST. HR 100'S TO 120'S. BP STABLE - SEE VS FS. MAP REMAINED >65. 2 UNIT FFP INFUSED. 1 UNIT OF PRBC INFUSED. SECOND UNIT OF PRBC INFUSING. INFORMED ONCOMING NURSE OF REPEAT H&H ONCE SECOND UNIT OF PRBC HAS COMPLETED INFUSING. 500 ML NS BOLUS ALSO FINISHED INFUSING. STRONG RADIAL PULSES. FAINT TIBIAL AND PEDAL PULSES. COOL, PALE SKIN. EDEMA BLE'S. SCD'S IN PLACE. HYPOACTIVE BT X4 QUADRANTS. ABD TENDER, FIRM, MOD DIST. N/V. COPIOUS AMOUNTS OF HEMATEMESIS UPON TRANSFER TO ICU. ZOFRAN ADMINISTERED. OCTREOTIDE DRIP AT 25 ML/HR INFUSING. NO N/V AT THIS TIME. COPIOUS AMOUNTS OF LIQUID/MUCOUS RED/MAROON COLORED BM. OSTOMY BAG TO PARACENTESIS SITE TO RUQ - YELLOW OUTPUT WITH WHITE SEDIMENT. NO F/C. NO UO. PIV X3. NS TKO ON STANDBY. BEDBATH COMPLETED. NEW DRESSING TO COCCYX APPLIED. DR. DEY IN ICU MULTIPLE TIMES TO PROVIDE ORDERS AND ASSESS PT. DR. CARCAMO IN ICU THIS AM. DR. CARCAMO ORDERED PICC LINE INSERTION AND LEVOPHED ORDER. WAITING FOR MEDICATION FROM PHARMACY AT THIS TIME. DR. CARCAMO PLANNING TO VERIFY EMAR AND D/C LASIX. PT REPORT PROVIDED TO CHIDI COOPER THIS AM.
--- NOTE | 2018-06-11 08:00 | NUR ---
INITIAL ASSESSMENT PATIENT LYING IN BED, FLAT AFFECT, APPEARS WITHDRAWN. PATIENT ALERT AND ORIENTED X 4. YARD JACKER REPORTED THAT PATIENT HAS OCCASIONAL FORGETFULNESS. PATIENT HAS N/T IN ALL EXTREMITIES- REPORTS THAT THIS IS "NORMAL" FOR HIM. CIWA SCORE OF 2. PATIENT AFEBRILE. PATIENT DECREASED FROM 4 TO 2 L NC AND CONTINUES SATTING 90% AND GREATER. LUNGS CLEAR T/O, DIMINISHED IN LOWER LOBES. PATIENT HAS MOIST, PRODUCTIVE COUGH. PATIENT COUGHING UP MODERATE AMOUNT OF THICK, BLOODY SPUTUM. PATIENT IN ST, HR LOW 100S TO 1-TEENS. BP HYPOTENSIVE TO STABLE. SCDS IN PLACE. 2+ PULSES IN BUES, 1+ PULSES IN BILAT FEET. ABDOMEN MODERATELY DISTENDED, TENDER, WITH HYPOACTIVE BS. YARD JACKER REPORTED THAT PATIENT HAS BEEN HAVING BRIGHT RED EMESIS AND MAROON STOOLS T/O SHIFT. PATIENT STATES HE HAS CONTINUED TO BE NAUSEOUS. PATIENT NPO AT THIS TIME. EXTREMITIES PALE AND COOL. COCCYX REDDENED. RUQ OLD PARACENTESIS SITE LEAKING SEROUS DRAINAGE- OSTOMY BAG IN PLACE. SCATTERED BRUISES NOTED. OCTREOTIDE INFUSING AT 25 MLS/ HOUR, NS TKO. SISTER AT BEDSIDE. BED LOW, CALL LIGHT IN REACH. WILL CONTINUE TO MONITOR PATIENT FREQUENTLY THROUGHOUT SHIFT.
--- NOTE | 2018-06-11 08:45 | NUR ---
CALL PLACED TO DR. LEPE'S OFFICE TO UPDATE ON PATIENT CONDITION AND AMOUNT OF BLOOD COMING FROM BOTH RECTUM AND EMESIS. SYSTEM ARCHIVE ANALYST STATED SHE WOULD GIVE THE DOCTOR THE MESSAGE AND HAVE HIM CALL BACK.
--- NOTE | 2018-06-11 09:30 | NUR ---
INFORMED DR. CARCAMO THAT PATIENT COMPLAINING OF NEUROPATHY IN FEET BUT SOME BPS HAVE BEEN LOW, IS ACTIVELY BLEEDING. ORDER FOR PRN ASPERCREAM OBTAINED. ALSO INFORMED THAT DR. LEPE HAS NOT YET CALLED BACK.
--- NOTE | 2018-06-11 09:51 | NUR ---
DR. LEPE'S OFFICE CALLED AGAIN AND INFORMED THAT DR. CARCAMO STATED IT WAS A CRITICAL CONSULT. CLOSING AGENT STATED SHE WOULD CONTACT ROBERTH AND LET HIM KNOW.
--- NOTE | 2018-06-11 10:43 | NUR ---
DR. LEPE IN ROOM TO SEE PATIENT.
[2018-06-11 11:16] LABS: Hematocrit 23.2 % (37.0-53.0); Hemoglobin 7.8 g/dL (13.5-17.5)
[2018-06-11 11:29] LABS: Source, Urine Catheter
--- NOTE | 2018-06-11 11:29 | NUR ---
GI TEAM IN ROOM TO SET UP FOR SCOPE. SISTER IN ROOM WITH PATIENT.
--- NOTE | 2018-06-11 11:33 | NUR ---
06/11/18 1132 Vargas Kirby History, Chart, Medications and Allergies reviewed before start of procedure.MONITOR INTACT WITH CONTINUOUS PULSE OXIMETRY AND INTERMITTENT BP.3-LEAD EKG REVIEWED WITH PHYSICIAN PRIOR TO START OF PROCEDURE.O2 VIA N/C INTACT THROUGHOUT SEDATION/PROCEDURE. Patient confirms NPO status and agrees with scheduled surgery.See Anesthesia record.
[2018-06-11 11:45] LABS: Appearance, Urine Clear (Clear); Blood, Urine 1+ (Neg); Color, Urine Amber (P-Yellow); Glucose Qualitative, Urine Neg (Neg); Ketones, Urine 1+ (Neg); Leukocyte Esterase, Urine 1+ (Neg); Nitrite, Urine Pos (Neg); Protein, Urine 2+ (Neg); Specific Gravity, Urine 1.025 (1.003-1.022); Urobilinogen, Urine 1+ (Normal)
--- NOTE | 2018-06-11 12:30 | NUR ---
PATIENT RESTING QUIETLY IN BED. PATIENT HAS TEMP OF 99.1 DEGREES FAHRENHEIT. PATIENT HAS BEEN RECEIVING PRN FENTANYL AND ASPERCREAM TO HELP WITH CHRONIC PAIN IN BACK AND IN FEET. PATIENT HAD NOT VOIDED ALL SHIFT. BLADDER SCAN SHOWED OVER 488 MLS IN BLADDER. INFORMED AND ROBERTS PLACED ORDERED. ROBERTS DRAINING TEA COLORED URINE. PATIENT REMAINS SATTING WELL ON [address] NC[address] PATIENT IN ST, HR 1-TEENS TO 120S. BP STABLE. NO OTHER ACUTE CHANGES TO NOTE ON AT THIS TIME. WILL CONTINUE TO MONITOR.
[2018-06-11 12:58] LABS: Bilirubin, Urine 1+ (Neg)
[2018-06-11 13:07] LABS: Red Blood Cells, Urine 0-2 /hpf (0-2); Squamous Epithelial Cells Not Seen /hpf (Few); White Blood Cells, Urine 0-2 /hpf (0-5)
[2018-06-11 13:08] LABS: Bacteria Mod /hpf
[2018-06-11 14:50] LABS: BASOPHILS ABSOLUTE AUTO 0.03 K/mm3 (0.00-0.23); BASOPHILS PERCENT AUTO 0 % (0-2); EOSINOPHILS ABSOLUTE AUTO 0.02 K/mm3 (0.00-0.68); EOSINOPHILS PERCENT AUTO 0 % (0-6); Hematocrit 24.1 % (37.0-53.0); Hemoglobin 8.2 g/dL (13.5-17.5); IMMATURE GRAN ABSOLUTE AUTO 0.03 K/mm3 (0.00-0.10); IMMATURE GRAN PERCENT AUTO 0 % (0-1); LYMPHOCYTES ABSOLUTE AUTO 2.07 K/mm3 (0.84-5.20); LYMPHOCYTES PERCENT AUTO 25 % (21-46); MONOCYTES PERCENT AUTO 12 % (4-13); Mean Corpuscular HGB 34.3 pg (26.0-34.0); Mean Platelet Volume 11.1 fL (9.1-12.4); NEUTROPHILS ABSOLUTE AUTO 5.07 K/mm3 (1.96-9.15); NEUTROPHILS PERCENT AUTO 62 % (41-73); Platelet Count 169 K/mm3 (150-400); RDW Coefficient Variation 20.1 % (11.7-14.2); Red Blood Cell Count 2.39 M/mm3 (4.30-5.90); White Blood Cell Count 8.22 K/mm3 (4.00-11.30)
[2018-06-11 14:52] LABS: Mean Corpuscular Volume 101 fL (80-100)
--- NOTE | 2018-06-11 15:06 | NUR ---
DR. LEPE CALLED AND INFORMED OF CBC LAB RESULTS. STATED THAT PATIENT COULD HAVE CLEAR LIQUID DIET WITH NO RED ITEMS. NO OTHER ORDERS RECEIVED AT THIS TIME. DR. JENSEN WITH HAVING NEXT H&H AT 2130. WILL CONTINUE TO MONITOR.
--- NOTE | 2018-06-11 17:00 | NUR ---
PATIENT RESTING QUIETLY IN BED. FAMILY AT BEDSIDE. PATIENT AFEBRILE. PATIENT GIVEN PRN ZOFRAN FOR COMPLAINT OF NAUSEA. PATIENT GIVEN PRN FENTANYL FOR COMPLAINT OF CHRONIC BACK AND BILAT FOOT PAIN. CIWA SCORE OF 2. PATIENT SATTING 90% AND GREATER ON RA. PATIENT IN SR TO ST, HR 90S TO LOW 100S. BP STABLE. PATIENT COMPLAINING OF EXTREME DISCOMFORT FROM ROBERTS CATHETER. PATIENT WOULD LIKE OUT. DR. CARCAMO NOTIFIED. ROBERTS CATHETER REMOVED AND ORDER PLACED TO BLADDER SCAN NEEDED AND STRAIGHT CATH FOR URINE OVER 450 MLS. PATIENT STATES HE IS MUCH HAPPIER NOW. PATIENT HAS NOT HAD ANY ACTIVE BLEEDING NOTED SINCE SCOPE PERFORMED AND IS TOLERATING CLEAR LIQUIDS WELL THUS FAR. NO OTHER ACUTE CHANGES TO NOTE ON AT THIS TIME. WILL CONTINUE TO MONITOR.
--- NOTE | 2018-06-11 18:56 | NUR ---
SHIFT SUMMARY PATIENT HAS REMAINED MOSTLY ALERT AND ORIENTED T/O SHIFT. PATIENT DID HAVE SOME SLIGHT CONFUSION AFTER SCOPE BUT CLEARED SHORT TIME LATER. PATIENT REMAINS FLAT, WITHDRAWN. FAMILY HAS BEEN IN AND OUT T/O DAY. CIWA SCORE HAS REMAINED AT 2. PATIENT REMAINS WEAK AND HAS REMAINED BEDREST. PATIENT HAD TMAX OF 99.5 DEGREES FAHRENHEIT. PATIENT GIVEN PRN FENTANYL AND ASPERCREAM FOR COMPLAINT OF CHRONIC BACK AND FOOT PAIN. PATIENT HAS REMAINED SATTING WELL ON RA TO 2 L NC. LUNGS HAVE REMAINED CLEAR T/O AND DIMINISHED IN LOWER LOBES. PATIENT WAS COUGHING UP MODERATE AMOUNT OF THICK, BLOODY SECRETIONS FIRST HALF OF SHIFT BUT HAS SINCE DECREASED. PATIENT HAS REMAINED IN SR TO ST, HR 90S TO 120S. PATIENT HYPOTENSIVE THIS AM, AFTER BLOOD ADMINISTRATION BP HAS BEEN STABLE. PATIENT HAD A FEW BMS THIS SHIFT THAT WERE MAROON IN COLOR AND LIQUID/ JELLY IN CONSISTENCY. PATIENT HAD NO EMESIS BUT DID REPORT FEELING NAUSEOUS MOST OF THE DAY. PATIENT HAS NOT HAD ANY BMS SINCE SCOPE. PATIENT NOW TOLERATING CLEAR LIQUID DIET BUT CONTINUES TO HAVE MED DELIVERY PRECAUTIONS BECAUSE OF ESOPHAGEAL STRICTURE. PATIENT HAD ROBERTS IN FOR SHORT TIME, DRAINING TEA COLORED URINE. PATIENT COMPLAINT OF PAIN, DR. PALOMINO, ROBERTS REMOVED. PRN BLADDER SCANS WILL NOW BE PERFORMED AND PATIENT WILL BE STRAIGHT CATHED FOR ANYTHING OVER 450 MLS. PATIENT STATES THAT HE HAS STRUGGLED WITH RETENTION AND USED TO TAKE FLOMAX BUT STOPPED AND DOES NOT REMEMBER WHY HE STOPPED TAKING IT. SCHEDULED FLOMAX STARTED TODAY. NO CHANGE IN SKIN. PATIENT STATES THAT EDEMA IN LEGS IS BETTER THAN IT HAS BEEN. PATIENT HAS BEEN REPOSITIONED T/O SHIFT. NS INFUSING AT 100 MLS/ HOUR, OCREOTIDE AT 25 MLS/ HOUR. BED LOW, CALL LIGHT IN REACH. REPORT HAS BEEN GIVEN TO ASSUMING NURSE.
--- NOTE | 2018-06-11 20:00 | NUR ---
ASSUMED CARE OF PT AT 1915. REPORT RECEIVED. PT PRESENTS IN BED IN NO APPARENT DISTRESS. DO DEMONSTRATE A RATHER FLAT AFFECT. SISTER HAS VOICED THAT PT AT HOME HAS BEEN, IN HER OPINION, "VERY DEPRESSED AND TRYING TO DRINK HIMSELF TO ." PT DOES COMPLAIN OF ABDOMINAL PAIN WHICH HE RATES 3/10. PT TO BE MEDICATED WITH 25 MCG FENTANYL. NO S/S BLEED NOTED. WILL REVIEW CHART AND PLAN OF CARE FOR THIS PT.
[2018-06-11 21:46] LABS: Hematocrit 24.2 % (37.0-53.0)
--- NOTE | 2018-06-11 22:00 | NUR ---
PT STATES THAT HE IS NOT ABLE TO URINATE AND THAT HE FEELS VERY UNCOMFORTABLE. BLADDER SCAN DONE REVEALING >679 ML URINE RETENTION. DID CATH PT WITH 14 VI[place]ESE ROBERTS CATHETER SECONDARY TO NOT HAVING RED RUBBER CATHETER AVAILABLE. HAVE NOTIFIED SUPPLY FOR NEED. PT WAS ABLE TO TOLERATE 14 VIETNAMESE WHILE IT WAS DRAINING. OPTED TO INFLATE BALLOON, AND PLACE CATHETER TO DRAIN TO BEDSIDE BAG. ORDER RECEIVED FOR UROJET FOR COMFORT AND CATHETER TOLERANCE SECONDARY TO PT'S COMPLAINT OF A "STINGING" FEELING AT [place]. AT TIME OBTAINING UROJET PT HAD NO FURTHER COMPLAINTS. WILL USE NEEDED FOR PT COMFORT. PT HAS CALLED CONCERNING HIS BETIME MEDICATION. WHEN INSTRUCTING PT THAT HE HAD RECEIVED HIS ORDERED BEDTIME MEDICATIONS HE INQUIRED ABOUT THE "ONE THROUGH MY IV" WHEN DELVING FURTHER HE SAID THAT IT WAS HIS PAIN SHOT. TEACHING ON FENTANYL THAT IS ORDERED Q 4 HOURS. HE HAD ASKED FOR FENTANYL FOR A "SOUR STOMACHE" THEN FOR HIS KNEES, AND THEN AGAIN FOR HIS FEET. ASPERCREAM APPLIED TO HIS KNEES AND HIS FEET HE USES AT HOME. DID SPEAK TO PT ABOUT WHEN HE WOULD BE AVAILABLE FOR ADDITIONAL DOSE. PT VOICES UNDERSTANDING. WILL CONTINUE TO MONITOR.
--- NOTE | 2018-06-12 02:10 | NUR ---
MEDICATED PT WITH 50 MCG FENTANYL FOR COMPLAINTS OF PAIN 9/10 IN FEET, LEGS, KNEES, HIPS, AND BACK. PT STATES THAT HE WAS STARTED ON NEURONTIN PREVIOUS TO HOSPITAL FOR NEUROPATHY PAIN. PT ALSO STATES THAT HE WAS ORDERED LIBRIUM PREVIOUS TO HOSPITAL BUT DID NOT GET THIS FILLED. SAYS THAT THIS IS DAY FOUR WITHOUT ALCOHOL. 4-5 GLASSES OF WINE PER DAY IS WHAT PT STATES HE CONSUMES. HAVE NOTED PT IS SOMEWHAT FORGETFUL AND PULLS AT HIS LEADS, OXYGEN, AND HAS REMOVED HIS BLOOD PRESSURE CUFF AT TIMES. PT NEEDS TO BE REMINDED NOT TO DO THESE THINGS. PT STATES HE DOES NOT RECALL REMOVING ITEMS. HAS NOT MADE ANY ATTEMPTS TOWARDS HIS IV'S. AGAIN, NO S/S BLEEDING TO NOTE. 2130 HGB RELATIVELY UNCHANGED FROM PREVIOUS VALUE. WILL CONTINUE WITH Q 2 HOUR TURNS IN BED. PT DOES NEED REMINDER THAT HE HAS A CATHETER IN PLACE. HE CLAIMS THAT HE FEELS HE NEEDS TO URINATE AT TIMES. WILL CONTINUE TO MONITOR PT.
[2018-06-12 03:54] LABS: Source, Urine Catheter
[2018-06-12 03:57] LABS: Blood, Urine 5+ (Neg); Glucose Qualitative, Urine Neg (Neg); Ketones, Urine 1+ (Neg); Leukocyte Esterase, Urine 3+ (Neg); Nitrite, Urine Pos (Neg); Protein, Urine 2+ (Neg); Specific Gravity, Urine 1.025 (1.003-1.022); Urobilinogen, Urine 1+ (Normal)
[2018-06-12 04:01] LABS: Appearance, Urine Hazy (Clear); BASOPHILS ABSOLUTE AUTO 0.03 K/mm3 (0.00-0.23); BASOPHILS PERCENT AUTO 0 % (0-2); Bilirubin, Urine 1+ (Neg); Color, Urine Yellow (P-Yellow); EOSINOPHILS ABSOLUTE AUTO 0.05 K/mm3 (0.00-0.68); EOSINOPHILS PERCENT AUTO 1 % (0-6); Hematocrit 24.1 % (37.0-53.0); Hemoglobin 8.1 g/dL (13.5-17.5); IMMATURE GRAN ABSOLUTE AUTO 0.02 K/mm3 (0.00-0.10); IMMATURE GRAN PERCENT AUTO 0 % (0-1); LYMPHOCYTES ABSOLUTE AUTO 2.43 K/mm3 (0.84-5.20); LYMPHOCYTES PERCENT AUTO 31 % (21-46); MONOCYTES ABSOLUTE AUTO 0.82 K/mm3 (0.16-1.47); MONOCYTES PERCENT AUTO 10 % (4-13); Mean Corpuscular HGB 33.9 pg (26.0-34.0); Mean Corpuscular HGB Conc 33.6 g/dL (31.5-36.5); Mean Corpuscular Volume 101 fL (80-100); NEUTROPHILS ABSOLUTE AUTO 4.55 K/mm3 (1.96-9.15); NEUTROPHILS PERCENT AUTO 58 % (41-73); Platelet Count 164 K/mm3 (150-400); RDW Coefficient Variation 19.1 % (11.7-14.2); RDW Standard Deviation 70.4 fL (35.1-46.3); Red Blood Cell Count 2.39 M/mm3 (4.30-5.90)
[2018-06-12 04:15] LABS: Amorphous Mod ({null, 0-Heavy}); Bacteria Many /hpf; Squamous Epithelial Cells Rare /hpf (Few); White Blood Cells, Urine TNTC /hpf (0-5)
[2018-06-12 04:22] LABS: Anion Gap 4 mmol/L (6-16); Blood Urea Nitrogen 14 mg/dL (8-24); Bun/Creatinine Ratio 17.9 (12.0-20.0); CO2, Blood 29 mmol/L (21-32); Calcium, Blood 7.5 mg/dL (8.5-10.1); Chloride, Blood 109 mmol/L (98-108); Creatinine, Blood 0.78 mg/dL (0.60-1.20); Glomerular Filtration Rate >60 (60-); Glucose, Blood 133 mg/dL (70-99); Phosphorus, Blood 3.5 mg/dL (2.5-4.9); Potassium, Blood 4.6 mmol/L (3.5-5.5); Sodium, Blood 142 mmol/L (136-145)
--- NOTE | 2018-06-12 06:02 | NUR ---
PT HAS HAD MOMENTS OF FORGETFULNESS. HAS CLAIMED HE WAS IN THIS RN'S HOME AT TIMES. ONCE SAYING [facility]. PT REORIENTED. WHILE SLEEPING PT'S SATURATIONS WOULD DROP TO 87-[address] O2 AT 1 LITER PER MINUTE PER NASAL CANNULA. PT FREQUENTLY REMOVES CANNULA. CURRENTLY HAS NOT REMOVED IN OVER AN HOUR. SATURATIONS HAVE BEEN MAINTAINING > 90 PERCENT. VSS. ROBERTS CATHETER DRAINS TEA COLORED URINE. OF NOTE: BLADDER SCAN HAD INDICATED PT'S URINE RETENTION WAS > 679 ML. AFTER PLACING ROBERTS, AND TOTALING VOLUME THIS AM, PT HAD ONLY 345 ML URINE OUT. HIGHER VOLUME FROM SCAN MAY REFLECT SOME ASCITES FLUID. PT HAS TOLERATED CATHETER WELL THIS NIGHT. HAS BEEN MEDICATED WITH 50 MCG FENTANYL FOR FEET, LEGS, KNEES, HIPS, AND BACK PAIN. PT RATES PAIN BEFORE LAST DOSING AT 10/10 FROM HAVING BEEN TURNED IN BED. PT CURRENTLY RESTING IN BED WITHOUT COMPLAINTS. HAS CIWA SCORING THAT HAS AVERAGED 8-9 PER SCORING. HAVE STARTED TO NOTE INCREASING TREMORS IN HANDS. WEAK WITH WOOD BOX MAKER. PT, UNFORTUNEATLY WHILE PULLING LEADS, BLOOD PRESSURE CUFF, AND OXYGEN TUBING OFF, MANAGED TO UNDO SEAL ON OSTOMY BAG THAT COVERED PARACENTESIS SITE AND DRAINED BAG ON HIMSELF AND BED. PARTIAL BEDBATH AND LINEN CHANGE DONE. PT HAS SMALL BM THAT WAS BLACK WITH MAROON TARRY IN NATURE. WILL CONTINUE TO MONITOR PT, AND WILL REPORT OFF TO ONCOMING RN.
--- NOTE | 2018-06-12 07:44 | NUR ---
INFORMED DR. CARCAMO OF PATIENT CIWA SCORES BETWEEN 8 AND 9 DURING SHEET METAL MECHANIC. INFORMED THAT PATIENT IS ON CLEAR DIET AND ABOUT POSSIBLY RESUMING GABAPENTIN FOR PATIENT'S COMPLAINT OF CHRONIC NEUROPATHY IN FEET. INFORMED THAT URINE POSITIVE FOR LEUKOCYTES, NITRITES AND BACTERIA. STATED SHE WOULD PUT ORDERS IN.
--- NOTE | 2018-06-12 08:30 | NUR ---
INITIAL ASSESSMENT PATIENT RESTING IN BED. SISTER AT BEDSIDE. PATIENT HAS FLAT AFFECT, WITHDRAWN. PATIENT IS ALERT AND ORIENTED X 4 BUT HAS PERIODS OF CONFUSION. CIWA SCORE OF 5 THIS AM. PATIENT WEAK BUT ABLE TO MOVE ALL EXTREMITIES. PATIENT AFEBRILE. PATIENT COMPLAINS OF CHRONIC FOOT AND BACK PAIN AND ALSO PAIN STOMACH "WHERE ULCER WAS FIXED YESTERDAY". PATIENT IS SATTING WELL ON RA. LUNGS CLEAR T/O, LOWER LOBES DIMINISHED. SHALLOW BREATHS NOTED. PATIENT HAS OCCASIONAL, NONPRODUCTIVE COUGH. PATIENT IN ST, HR LOW 100S TO 1-TEENS. BP STABLE. SCDS IN PLACE. ABDOMEN MODERATELY DISTENDED, SOFT, TENDER TO TOUCH, WITH HYPERACTIVE BS. PATIENT DENIES NAUSEA AT THIS TIME. PATIENT DOES NOT APPEAR TO BE ACTIVELY BLEEDING FROM ANYWHERE. PATIENT HAS BEEN TOLERATING CLEAR LIQUID DIET AND TAKING PRESCRIBED MEDICATIONS WITH NO PROBLEMS OF YET. ROBERTS PLACED BY PATTERN LEASE INSPECTOR, DRAINING TEA COLORED URINE. PATIENT PALE, EDEMATOUS. COCCYX REDDENED. SCATTERED BRUISING NOTED. OSTOMY BAG OVER S/P PARACENTESIS- DRAINING SEROUS FLUID. NS TKO, OCTREOTIDE INFUSING AT 25 MLS/ HOUR. BED LOW, CALL LIGHT IN REACH. SISTER AT BEDSIDE. WILL CONTINUE TO MONITOR PATIENT FREQUENTLY THROUGHOUT SHIFT.
--- NOTE | 2018-06-12 11:42 | NUR ---
PATIENT RESTING IN BED. TWO SISTERS AT BEDSIDE. PATIENT AFEBRILE. PATIENT GIVEN PRN FENTANYL FOR COMPLAINT OF CHRONIC PAIN IN FEET AND KNEES. PATIENT GIVEN PRN ZOFRAN FOR COMPLAINT OF NAUSEA. CIWA OF 10. PATIENT CONTINUES TO HAVE PERIODS OF CONFUSION. PATIENT SATTING 90% OR GREATER ON RA TO 1 L NC. ROBERTS DRAINING ORANGE COLORED URINE. PATIENT HAS HAD 2 LARGE DARK RED BMS THIS SHIFT. H&H SCHEDULED FOR 1400. NO OTHER ACUTE CHANGES TO NOTE ON AT THIS TIME. WILL CONTINUE TO MONITOR.
--- NOTE | 2018-06-12 12:04 | NUR ---
DR. LEPE IN TO SEE PATIENT AND TALK TO PATIENT'S SISTER. INFORMED OF PATIENT'S AMMONIA OF 53 AND THAT PATIENT HAS HAD TWO LARGE BLOODY BMS SO FAR THIS SHIFT. STATED TO INFORM HIM OF H&H RESULTS AT 1700 TODAY. NO ORDERS RECEIVED AT THIS TIME.
[2018-06-12 14:18] LABS: Hematocrit 24.1 % (37.0-53.0)
--- NOTE | 2018-06-12 14:48 | NUR ---
SPOKE TO DR. CARCAMO ABOUT ROBERTS PLACED ON MACHINING AND ASSEMBLY SUPERVISOR. NEW ORDER OBTAINED. INFORMED OF AMMONIA LEVEL OF 53 TODAY AND THAT PATIENT HAS HAD TWO LARGE BLOODY BMS. INFORMED THAT DR. LEPE IS AWARE OF THIS.
--- NOTE | 2018-06-12 14:52 | NUR ---
DR. LEPE IN TO SEE PATIENT. ORDERS RECEIVED.
--- NOTE | 2018-06-12 16:38 | NUR ---
Telephone report received from Lulu Abdi RN, at this time.
--- NOTE | 2018-06-12 16:44 | NUR ---
SHIFT SUMMARY PATIENT RESTING QUIETLY IN BED. AND SISTER AT BEDSIDE. PATIENT AFEBRILE. PATIENT HAS NO COMPLAINTS OF PAIN AT THIS TIME. PATIENT CIWAS 5-10. PATIENT HAS PRN LIBRIUM BUT HAS NOT NEEDED YET. PATIENT CONTINUES TO HAVE PERIODS OF CONFUSION AND ASKING WHERE HE IS. PATIENT HAS BEEN RECEIVING PRN FENTANYL FOR COMPLAINTS OF PAIN IN KNEES/ FEET/ BACK/ "FIXED ULCER". PATIENT STARTED ON SCHEDULED GABAPENTIN. PT WORKED WITH PATIENT IN BED DOING BED EXERCISES. PATIENT REMAINS WEAK AND LETHARGIC. PATIENT HAS REMAINED SATTING WELL ON RA TO 2 L NC. PATIENT HAS REMAINED IN ST, HR LOW 100S TO 120S. BP HAS BEEN STABLE. ABDOMEN DISTENDED, MORE SO THAN YESTERDAY. PATIENT HAS HAD A FEW LARGE LIQUID BMS THIS SHIFT. PATIENT COMPLAINED OF NAUSEA ONE TIME. PATIENT HAS HAD NO APPETITE THIS SHIFT. ROBERTS DRAINING MINIMAL AMOUNT OF ORANGE URINE. DR. CARCAMO NOTIFIED OF MINIMAL OUTPUT. PATIENT STARTED ON ANTIBIOTICS FOR UTI. NO CHANGE IN SKIN. PATIENT REPOSITIONED THROUGHOUT SHIFT. NS TKO. OCREOTIDE DECREASED TO 12.5 MLS/ HOUR. PATIENT RECEIVED BED BATH THIS SHIFT. NO COMPLAINTS AT THIS TIME.
--- NOTE | 2018-06-12 16:50 | NUR ---
PATIENT TRANSFERRED TO PCU O8. REPORT HAS BEEN GIVEN TO ASSUMING NURSE. PATIENT'S SISTER AND WITH PATIENT.
--- NOTE | 2018-06-12 17:07 | NUR ---
VERIFIED OCTREOTIDE GTT AT 12.5 CC/HOUR.
--- NOTE | 2018-06-12 17:51 | NUR ---
The pt was transferred from ICU to PCU 8 at 5 pm. He is drowsy. Answers questions appropriately, knows his name, place, and recognizes family and is following simple directions well. Unable to correctly state the date/time. He is asking for pain medication, but falling asleep mid-conversation. He states that his pain is "all over" . His Nuvia and sister are at the bedside at the time of transfer. He is lying in bed, supine position. Respirations are even, unlabored, but shallow and tachypneic. Telemetry monitoring in place, sinus tachycardia per monitor. The pt is not wearing any oxygen. Abodmen is distended, soft, with a collection bag over what I was told in report is the old paracentesis site on the right side, draining serous fluid. Bear catheter is in place, draining dark orange urine. Pillows were adjusted under his calves to promote reduction of edema in his ankles and feet and for his own comfort.
[2018-06-13 04:26] LABS: BASOPHILS ABSOLUTE AUTO 0.05 K/mm3 (0.00-0.23); BASOPHILS PERCENT AUTO 1 % (0-2); EOSINOPHILS ABSOLUTE AUTO 0.12 K/mm3 (0.00-0.68); EOSINOPHILS PERCENT AUTO 1 % (0-6); Hematocrit 24.5 % (37.0-53.0); Hemoglobin 8.1 g/dL (13.5-17.5); IMMATURE GRAN ABSOLUTE AUTO 0.04 K/mm3 (0.00-0.10); IMMATURE GRAN PERCENT AUTO 0 % (0-1); LYMPHOCYTES ABSOLUTE AUTO 2.45 K/mm3 (0.84-5.20); LYMPHOCYTES PERCENT AUTO 27 % (21-46); MONOCYTES ABSOLUTE AUTO 0.91 K/mm3 (0.16-1.47); MONOCYTES PERCENT AUTO 10 % (4-13); Mean Corpuscular HGB 34.3 pg (26.0-34.0); Mean Corpuscular HGB Conc 33.1 g/dL (31.5-36.5); Mean Platelet Volume 10.9 fL (9.1-12.4); NEUTROPHILS ABSOLUTE AUTO 5.67 K/mm3 (1.96-9.15); NEUTROPHILS PERCENT AUTO 62 % (41-73); Platelet Count 174 K/mm3 (150-400); RDW Coefficient Variation 17.8 % (11.7-14.2); RDW Standard Deviation 67.6 fL (35.1-46.3); Red Blood Cell Count 2.36 M/mm3 (4.30-5.90); White Blood Cell Count 9.24 K/mm3 (4.00-11.30)
[2018-06-13 04:29] LABS: Mean Corpuscular Volume 104 fL (80-100)
[2018-06-13 04:42] LABS: Albumin, Blood 1.8 g/dL (3.4-5.0); Anion Gap 3 mmol/L (6-16); Blood Urea Nitrogen 16 mg/dL (8-24); Bun/Creatinine Ratio 19.4 (12.0-20.0); CO2, Blood 29 mmol/L (21-32); Calcium, Blood 7.5 mg/dL (8.5-10.1); Chloride, Blood 110 mmol/L (98-108); Creatinine, Blood 0.82 mg/dL (0.60-1.20); Glomerular Filtration Rate >60 (60-); Glucose, Blood 120 mg/dL (70-99); Potassium, Blood 4.4 mmol/L (3.5-5.5); Sodium, Blood 142 mmol/L (136-145)
--- NOTE | 2018-06-13 04:51 | NUR ---
SHIFT SUMMARY: PATINT INTERMITTENTLY CONFUSED TO PLACE/TIME/SITUATION, SLEEPY BUT EASILY AROUSED. PATIENT STATES CURRENT PAIN MEDICATIONS DO NOT WORK BUT FALLS ASLEEP WHILE ASKING FOR PAIN MEDICATION. TURNED Q2 HOURS WITH SKIN CARE ADMINISTERED, VSS, CALL LIGHT WITHIN REACH, BED LOW AND LOCKED WITH CALL LIGHT ON.
--- NOTE | 2018-06-13 09:00 | NUR ---
RECEIVED REPORT AND ASSUMED CARE OF PATIENT. HE IS MOANING AND STATES HE IS HAVING PAIN AND WOULD LIKE PAIN MEDICATION. FOLLOWING SCHEDULED MEDICATION ORDERS FOR PATIENT. FAMILY AT BEDSIDE EXPRESSED CONCERN ABOUT PATIENT GOING HOME AND WOULD LIKE TO HAVE HIM GO TO SNF UPON DISCHARGE TO WORK ON BUILDING UP STRENGTH. WILL CONTINUE TO MONITOR AND FOLLOW ORDERS. BED LOCKED AND LOW POSITION, SCD'S ON, CALL LIGHT WITHIN EASY REACH.
--- NOTE | 2018-06-13 12:51 | NUR ---
DR CARCAMO TO SEE PATIENT, SHE ORDERED ALBUMIN AND A VENOUS STUDY OF THE LEFT LE, WARM TO TOUCH AND PAIN NOTED WITH PALPATION. INCREASED EDEMA, LASIX ORDERED TO ADRAI. WILL CONTINUE TO MONITOR AND FOLLOW ORDERS.
--- NOTE | 2018-06-13 14:47 | NUR ---
TRANSFERRED CARE TO CHIDI MEYER PT IS WORKING WITH PT AT THIS TIME.
--- NOTE | 2018-06-13 18:17 | NUR ---
Shift Summary Assumed care of pt at approx 1400. VSS. In no apparent sign of distress. Pt is A&O. No apparent differences noted in pt condition compared to assessment reported by Sowmya MURILLO. C/o pain in abd/stomach upon entering room. Treated with tylenol. When Dr. Barajas rounded on pt, updated that pt having c/o gastric pain, and received order for home dose of nexium pt family to bring in and tums. Pt denies any other acute complaints or requests at this time. Sowmya MURILLO rassumed care of pt at approx 1750.
--- NOTE | 2018-06-13 18:25 | NUR ---
RESUMED CARE OF PATIENT FROM RN JALEN ROBERTS HAS BEEN REMOVED. PT HAS EPISODES OF LETHARGY, BUT WHEN ENGAGED, HE CAN EXPRESS HIS NEEDS APPROPRIATELY. PT SEEN BY DR. LEPE, HE ORDERED TUMS PRN TO ADDRESS PAIN/DISCOMFORT WELL APPROVED PATIENT FAMILY TO BRING IN NEXIUM FOR USE WHILE IN THE HOSPITAL. WILL CONTINUE TO MONITOR AND GIVE REPORT TO NOC RN. BED LOCKED AND LOW, CALL LIGHT WITHIN EASY REACH.
--- NOTE | 2018-06-13 19:50 | NUR ---
ASSUMED CARE PT SLEEPING IN ROOM COMFORTABLY. PER DAY SHIFT PT HAS BEEN LETHARGIC T/O DAY. ROBERTS CATH WAS PULLED LATE IN THE AFTERNOON. PT HAS NOT VOIDED SINCE, PER DAY SHIFT LASIX WAS GIVEN IN THE MORNING BEFORE CATH WAS REMOVED AND PT HAD SIGNIFICANT OUTPUT BEFORE REMOVAL. WILL MONITOR FOR FURTHER URINE OUTPUT. RESP EVEN UNLBOARED ON RA W/ SATS >92% DENIES SOB. DENIES CHEST PAIN. PT APPEARS TO BE RESTING COMFORTABLY. PER DAY SHIFT PT HAS BEEN PAINFUL T/O DAY, WILL MEDICATE PER EMAR NEEDED. CALL LIGHT IS IN REACH.
[2018-06-14 03:51] LABS: BASOPHILS ABSOLUTE AUTO 0.02 K/mm3 (0.00-0.23); BASOPHILS PERCENT AUTO 0 % (0-2); EOSINOPHILS ABSOLUTE AUTO 0.13 K/mm3 (0.00-0.68); EOSINOPHILS PERCENT AUTO 2 % (0-6); Hematocrit 21.9 % (37.0-53.0); IMMATURE GRAN ABSOLUTE AUTO 0.04 K/mm3 (0.00-0.10); IMMATURE GRAN PERCENT AUTO 1 % (0-1); LYMPHOCYTES ABSOLUTE AUTO 1.65 K/mm3 (0.84-5.20); LYMPHOCYTES PERCENT AUTO 30 % (21-46); MONOCYTES ABSOLUTE AUTO 0.58 K/mm3 (0.16-1.47); MONOCYTES PERCENT AUTO 11 % (4-13); Mean Corpuscular HGB 33.8 pg (26.0-34.0); Mean Corpuscular Volume 106 fL (80-100); NEUTROPHILS ABSOLUTE AUTO 3.06 K/mm3 (1.96-9.15); NEUTROPHILS PERCENT AUTO 56 % (41-73); Platelet Count 146 K/mm3 (150-400); RDW Coefficient Variation 16.9 % (11.7-14.2); RDW Standard Deviation 66.2 fL (35.1-46.3); Red Blood Cell Count 2.07 M/mm3 (4.30-5.90); White Blood Cell Count 5.48 K/mm3 (4.00-11.30)
[2018-06-14 04:06] LABS: Anion Gap 5 mmol/L (6-16); Blood Urea Nitrogen 17 mg/dL (8-24); Bun/Creatinine Ratio 19.3 (12.0-20.0); CO2, Blood 30 mmol/L (21-32); Calcium, Blood 7.6 mg/dL (8.5-10.1); Chloride, Blood 110 mmol/L (98-108); Creatinine, Blood 0.88 mg/dL (0.60-1.20); Glomerular Filtration Rate >60 (60-); Glucose, Blood 111 mg/dL (70-99); Phosphorus, Blood 2.6 mg/dL (2.5-4.9); Potassium, Blood 4.1 mmol/L (3.5-5.5); Sodium, Blood 145 mmol/L (136-145)
--- NOTE | 2018-06-14 06:21 | NUR ---
SHIFT SUMMARY PT SLEEPING IN ROOM COMFORTABLY AT THIS TIME. PT WAS PAINFUL T/O NIGHT AND SLEPT OFF AND ON. AT START OF SHIFT IT WAS NOTED THAT URINE CULTURE CAME BACK POSITIVE FOR MRSA. PT WAS PLACED IN ISOLATION AT THIS TIME. PROVIDER CONSULTED AND NO CHANGES MADE TO ABX CURRENT PRESCRIBED. THIS AM W/ LABS HGB WAS LOW AT 7.0. PROVIDER WAS CALLED WITH LEVEL AND 1 UNIT PRBC'S WAS ORDERED FOR TRANSFUSION THIS AM. PROVIDER TO PUT IN ORDER. NO BLOODY EMESIS, AND NO BLOODY STOOL NOTED THIS SHIFT. PT DID HAVE VERY SMALL DRY SMEAR OF DARK STOOL, DID NOT APPEAR TO BE BLACK. BED ALARM IS ON, AND CALL LIGHT IS IN REACH.
--- NOTE | 2018-06-14 07:35 | NUR ---
AM ASSESSMEHNT: Pt resting in bed. Dozing but when he wakes states that he is having 8/10 pain to his knees, legs and back. Informed pt he would be medicated when he could stay awake for my assessment. Pt then woke up much more and answered questions appropriatly. LS clear. HR reg. BT hyperactive, abd distended. States that it is tender to palpation. R Side abd with ostomy bag over paracentisis site, still oozing large amounts of serous fluid. Pt is very pale in appearance. Unit of blood ordered. Will give per orders. +4 edema in BLE. Generalized edema throughout. Call light in reach. Will monitor.
--- NOTE | 2018-06-14 13:00 | NUR ---
update: BLood complete and H+H drawn. Pt up to chair with 2 person assist. Moderate assist needed. Abd seems slightly more distended. Pt C/O abd pain around "my liver". Will notify physician. Pt aslo states that his feet are very painful. Pt denies other needs at this time. VSS. Call light in reach. Family at bedside.
[2018-06-14 13:32] LABS: Hematocrit 23.6 % (37.0-53.0); Hemoglobin 7.4 g/dL (13.5-17.5)
[2018-06-14] MEDS ORDERED: Nexium40 MG PO (16:02)
--- NOTE | 2018-06-14 17:18 | NUR ---
shift summary: Pt dozing in bed at this time. Pt sat up in recliner chair for a few hours today. When assisted back to bed he bacame very light headed and pale. Very small, black smear on pad when he was transfered back to bed, but pt denies feeling like he needs to have a BM. 2nd unit of PRBC running per orders. Pt has an increase in abd pain this shift but denies nausea or need for BM. No other changes with pt this shift. VS have been stable. Minimal changes in edema. Min output from acsities site. Pt voiding dark alea urine. Will report to night rn.
--- NOTE | 2018-06-14 20:00 | NUR ---
ASSUMED CARE PT SLEEPING IN ROOM COMFORTABLY AT THIS TIME. PER DAY SHIFT PT HAD INCREASING ABD PAIN AND SITENTION T.O DAY. PT LOW HGB LEVELS LEAD TO TRANFUSION OF 2 UNITS PRBCS TODAY. HGB CAME UP TO 7.4 AFTER ONE UNIT. NEXT DRAW TO BE DONE NOW AND SENT TO LAB. WILL MONITOR. PT IS PALE AND REPORTS ABD FEELS LIKE THERE IS MORE PRESSURE. PER DAY SHIFT PT HAD NO BLOODY EMESIS OR JO ANN TODAY, BUT DID HAVE VERY SMALL BLACK SMEAR WHEN STANDING W/ PHYSICAL THERAPY TODAY. WILL CONT TO MONITOR SYMPTOMS FOR GI BLEED. PT REPOSITIONED FOR PAIN AT THIS TIME. CALL LIGHT IN REACH, BED ALARM ON.
[2018-06-14 20:35] LABS: Hematocrit 25.6 % (37.0-53.0); Hemoglobin 8.3 g/dL (13.5-17.5)
[2018-06-15 03:54] LABS: BASOPHILS ABSOLUTE AUTO 0.04 K/mm3 (0.00-0.23); BASOPHILS PERCENT AUTO 1 % (0-2); EOSINOPHILS ABSOLUTE AUTO 0.08 K/mm3 (0.00-0.68); EOSINOPHILS PERCENT AUTO 2 % (0-6); Hematocrit 26.6 % (37.0-53.0); Hemoglobin 8.7 g/dL (13.5-17.5); IMMATURE GRAN ABSOLUTE AUTO 0.04 K/mm3 (0.00-0.10); IMMATURE GRAN PERCENT AUTO 1 % (0-1); LYMPHOCYTES ABSOLUTE AUTO 1.57 K/mm3 (0.84-5.20); LYMPHOCYTES PERCENT AUTO 32 % (21-46); MONOCYTES ABSOLUTE AUTO 0.58 K/mm3 (0.16-1.47); MONOCYTES PERCENT AUTO 12 % (4-13); Mean Corpuscular HGB 33.6 pg (26.0-34.0); Mean Corpuscular HGB Conc 32.7 g/dL (31.5-36.5); Mean Platelet Volume 10.7 fL (9.1-12.4); NEUTROPHILS ABSOLUTE AUTO 2.67 K/mm3 (1.96-9.15); NEUTROPHILS PERCENT AUTO 54 % (41-73); Platelet Count 153 K/mm3 (150-400); RDW Coefficient Variation 17.6 % (11.7-14.2); RDW Standard Deviation 65.1 fL (35.1-46.3); Red Blood Cell Count 2.59 M/mm3 (4.30-5.90); White Blood Cell Count 4.98 K/mm3 (4.00-11.30)
[2018-06-15 04:02] LABS: Mean Corpuscular Volume 103 fL (80-100)
[2018-06-15 04:11] LABS: Albumin, Blood 2.2 g/dL (3.4-5.0); Anion Gap 5 mmol/L (6-16); Blood Urea Nitrogen 15 mg/dL (8-24); Bun/Creatinine Ratio 16.7 (12.0-20.0); CO2, Blood 29 mmol/L (21-32); Calcium, Blood 7.6 mg/dL (8.5-10.1); Chloride, Blood 110 mmol/L (98-108); Glomerular Filtration Rate >60 (60-); Glucose, Blood 104 mg/dL (70-99); Phosphorus, Blood 2.9 mg/dL (2.5-4.9); Potassium, Blood 3.9 mmol/L (3.5-5.5); Sodium, Blood 144 mmol/L (136-145)
--- NOTE | 2018-06-15 06:29 | NUR ---
SHIFT SUMMARY PT SLEEPING IN ROOM COMFORTABLY AT THIS TIME. PT HGB STABILIZED EARLY IN SHIFT AND CAME ABOVE 8. PT REPORTS ABD FEELS BETTER, NOT MUCH PAIN BEFORE. ABD REMAINS DISTENDED. NO BLOODY EMESIS OR STOOL NOTED THIS SHIFT. PT BECAME VERY PAINFUL APROX 0300 W/ NEUROPATHY PAIN. PT CONTINUED TO HAVE DIFFICULTY WITH NEUROPATHY PAIN T/O NIGHT. PT EXPRESSING NEED FOR INCREASED GABAPENTIN DOSE FOR BEDTIME. LEGS ELEVATED ON MULTIPLE PILLOWS FOR COMFORT. HAS BEEN MEDICATED PER EMAR, AND EDUCATED ON WHEN NEXT DOSE OF PAIN MED IS AVAILABLE. RESP EVEN UNLABORED ON RA, SLIGHTLY TACHYPNIC WHILE AWAKE. DENIES OTHER NEEDS BEYOUND PAIN MEDS. CALL LIGHT IN REACH.
--- NOTE | 2018-06-15 10:11 | NUR ---
COLOSTOMY BAG COVERING PRIOR PARACENTESIS SITE, DRAINING OF 75 ML.
--- NOTE | 2018-06-15 11:16 | NUR ---
THIS MORNING RECEIVED REPORT FROM CHIDI ALLISON AND ASSUMED CARE OF PATIENT. THIS MORNING, HE IS SITTING UP IN BED, C/O PAIN IN FEET. PT STATES, "MY FEET HURT SO BAD, I NEED MORE OF THE GABEPENTIN." THIS NURSE WROTE CONCERN ON BOARD FOR DR VISIT AND WILL ENSURE DR IS AWARE OF CONCERNS. FAMILY MEMBER CALLED AND STATED PT IS CALLING FAMILY WITH C/O OF PAIN IN FEET AND ASKING THEM TO BRING IN ADDITIONAL MEDICATION. THIS NURSE STATED IT IS THE POLICY OF THE HOSPITAL TO ADMINISTER ALL MEDS THROUGH OUR EMAR AND NO HOME MEDS SHOULD BE GIVEN TO PATIENT. SHE ADDITIONAL REQUESTED TO BRING IN A HOME TENS UNIT TO TRY TO HELP ALLIEVIATE NERVE PAIN IN PT FEET. WILL MENTION THIS POSSIBLE INTERVENTION TO THE DOCTOR WHEN ARRIVE TO UNIT. BED LOCKED AND LOW, CALL LIGHT WITHIN EASY REACH.
--- NOTE | 2018-06-15 12:31 | NUR ---
DR HINOJOSA IN TO SEE PATIENT. SHE IS GOING TO INCREASE HIS GABAPENTIN TO 300 TID. AND BEGIN TO TITRATE THE FENTYNAL DOWN AND BEGIN USING HOME OXY DOSES TO MANAGE PAIN. ENCOURAGED PT TO TRY CREAM FOR LEGS THAT INCLUDE LIDOCANE. STATED HE CAN TRY THE TENS UNIT, BUT IF IT DOES NOT HELP, DISCONTINUE USE. PLACING TRANSFER TO MEDICAL FLOOR.
--- NOTE | 2018-06-15 14:10 | NUR ---
PT SISTER COMES TO NURSE STATION TO VISIT WITH THIS NURSE. SHE HAS TENS UNIT TO DROP OFF FOR PATIENT AND STATES THAT SHE WOULD LIKE TO ENSURE THE SOCIAL WORKERS ARE PLANNING TO DISCHARGE PATIENT TO SNF VS HOME. SHE HAS CONCERNS ABOUT ETOH ABUSE IN HOME AND WANTS TO ENSURE PT HAS PLAN FOR CONTINUED SOBRIETY. WILL CONTINUE TO MONITOR AND FOLLOW ORDERS FOR THE PATIENT.
--- NOTE | 2018-06-15 18:38 | NUR ---
PT HAD A GOOD DAY TODAY, HE WAS UP IN THE CHAIR FOR MOST OF THE SHIFT. HE EXPRESSED THAT IT FELT GOOD TO BE UP AND HE IS FEELING A LITTLE BETTER, BUT STATES THAT HE FEELS VERY WEAK AND IS NOT STRONG ENOUGH TO BE ON HIS OWN AT HOME. THE POC IS FOR THIS PATIENT TO BE D/C'D TO SNF WHEN HE IS WELL, WE ARE BEGINNING TO TITRATE OFF OF FENTYNAL PER ASHISH'S ORDERS AND WILL START TO GIVE HOME MED OF OXY AT 10 MG TO START AND MONITOR EFFECT TO ENSURE NO MENTATION CHANGES WITH RESTART OF MEDICATION. PT HAS MANY INTERVENTIONS AVALIABLE FOR THE PAIN IN HIS FEET INCLUDING ASPERCREAM WITH LIDOCANE, TENS UNIT AND INCREASED GABEPENTIN MEDICATION. HAD LONG DISCUSSION WITH PATIENT ABOUT PLAN OF CARE AND WILL CONTINUE TO MONITOR AND GIVE REPORT TO NOC RN. BED LOCKED AND LOW, CALL LIGHT IN EASY REACH.
--- NOTE | 2018-06-16 05:43 | NUR ---
SUMMARY PT REQUIRING IV AND PO PAIN MEDS TONIGHT.BLADDER SCANNED PT HE HAD NOT VOID WITH REPORTED MINIMAL URGE TO VOID. SCANNED FOR > 924 ALTHOUGH UNCLEAR IF COMPLETELY ACCURATE DUE TO ASCITES. PT VERB HE WOULD NOT BE WILLING TO BE CATHED REGARDLESS. LACE CUTTER AND RN ASSISTED PT TO BEDSIDE COMMODE AND PT WAS ABLE TO VOID 400 ML TEA COLORED URINE.PT BEING MED STATUS WTIH NO TELE AND PCU BED NEEDED. PT WAS TRANSFERRED TO 362 PER BED LACE CUTTER AND NURSE IN ATTENDANCE REPORTED TO [place].PT ALERT AND TALKATIVE ON TRANSFER.
--- NOTE | 2018-06-16 06:49 | NUR ---
PCU TRANSFER PT. RECIEVED AT 0500. HE IS AAOX4. RESP EVEN AND UNLABORED. HE IS PLEASANT AND COOPERATIVE. COMPLAINED OF EXTREME PAIN IN LEGS AND WAS TREATED PER EMAR TO GOOD EFFECT. PT IS CURRENTLY SLEEPING LIGHTLY. APPEARS IN NO ACUTE DISTRESS. WILL CONTINUE TO MONITOR.
[2018-06-16 10:16] LABS: BASOPHILS ABSOLUTE AUTO 0.06 K/mm3 (0.00-0.23); BASOPHILS PERCENT AUTO 1 % (0-2); EOSINOPHILS PERCENT AUTO 2 % (0-6); Hematocrit 29.3 % (37.0-53.0); Hemoglobin 9.6 g/dL (13.5-17.5); IMMATURE GRAN ABSOLUTE AUTO 0.03 K/mm3 (0.00-0.10); IMMATURE GRAN PERCENT AUTO 0 % (0-1); LYMPHOCYTES ABSOLUTE AUTO 2.04 K/mm3 (0.84-5.20); LYMPHOCYTES PERCENT AUTO 30 % (21-46); MONOCYTES ABSOLUTE AUTO 0.65 K/mm3 (0.16-1.47); MONOCYTES PERCENT AUTO 10 % (4-13); Mean Corpuscular HGB 33.9 pg (26.0-34.0); Mean Corpuscular HGB Conc 32.8 g/dL (31.5-36.5); Mean Corpuscular Volume 104 fL (80-100); NEUTROPHILS ABSOLUTE AUTO 3.84 K/mm3 (1.96-9.15); NEUTROPHILS PERCENT AUTO 57 % (41-73); Platelet Count 185 K/mm3 (150-400); RDW Coefficient Variation 17.2 % (11.7-14.2); Red Blood Cell Count 2.83 M/mm3 (4.30-5.90); White Blood Cell Count 6.72 K/mm3 (4.00-11.30)
--- NOTE | 2018-06-16 15:30 | NUR ---
SPOKE WITH DR. RAZO AT BEDSIDE. NOTIFIED HIM THAT PATIENT HAS HAD 2 RED/MAROON STOOLS. ORDERS TO GET CBC AT 1700.
[2018-06-16 17:33] LABS: BASOPHILS ABSOLUTE AUTO 0.03 K/mm3 (0.00-0.23); BASOPHILS PERCENT AUTO 1 % (0-2); EOSINOPHILS ABSOLUTE AUTO 0.07 K/mm3 (0.00-0.68); EOSINOPHILS PERCENT AUTO 2 % (0-6); Hematocrit 23.5 % (37.0-53.0); Hemoglobin 7.7 g/dL (13.5-17.5); IMMATURE GRAN ABSOLUTE AUTO 0.01 K/mm3 (0.00-0.10); IMMATURE GRAN PERCENT AUTO 0 % (0-1); LYMPHOCYTES PERCENT AUTO 30 % (21-46); MONOCYTES ABSOLUTE AUTO 0.54 K/mm3 (0.16-1.47); MONOCYTES PERCENT AUTO 12 % (4-13); Mean Corpuscular HGB 33.8 pg (26.0-34.0); Mean Corpuscular HGB Conc 32.8 g/dL (31.5-36.5); Mean Corpuscular Volume 103 fL (80-100); NEUTROPHILS ABSOLUTE AUTO 2.56 K/mm3 (1.96-9.15); NEUTROPHILS PERCENT AUTO 56 % (41-73); Platelet Count 146 K/mm3 (150-400); RDW Coefficient Variation 17.2 % (11.7-14.2); RDW Standard Deviation 63.3 fL (35.1-46.3); Red Blood Cell Count 2.28 M/mm3 (4.30-5.90); White Blood Cell Count 4.61 K/mm3 (4.00-11.30)
--- NOTE | 2018-06-16 18:48 | NUR ---
PATIENT A/OX4, UP WITH 2 MAX ASSIST TO CHAIR. PARACENTESIS DONE TODAY AND 8.9 LITERS OF FLUID REMOVED. REPLACING ALBUMIN PER PHARMACY. PATIENT HAD 2 LIQUID BLOODY STOOLS. CBC REPEATED AND H/H DROPPED, DR. RAZO NOTIFIED AND ORDERED 1 UNIT OF BLOOD WITH H/H TO FOLLOW TRANSFUSION. PATIENT REPORTS SEVERE PAIN THROUGHOUT THE SHIFT, OXYCODONE GIVEN Q6 HOURS AND FENTANYL X1. FENTANYL AVAIALBLE FOR MORE DOSE. PATIENT HAS MEPILEX TO COCCYX DUE TO REDNESS. CHANGED TO PUREE DIET AND TOLERATING. CALM AND COOPERTIVE WITH CARE.
[2018-06-17 01:12] LABS: BASOPHILS ABSOLUTE AUTO 0.03 K/mm3 (0.00-0.23); BASOPHILS PERCENT AUTO 1 % (0-2); EOSINOPHILS ABSOLUTE AUTO 0.05 K/mm3 (0.00-0.68); EOSINOPHILS PERCENT AUTO 1 % (0-6); Hematocrit 23.9 % (37.0-53.0); Hemoglobin 7.7 g/dL (13.5-17.5); IMMATURE GRAN ABSOLUTE AUTO 0.01 K/mm3 (0.00-0.10); IMMATURE GRAN PERCENT AUTO 0 % (0-1); LYMPHOCYTES ABSOLUTE AUTO 1.28 K/mm3 (0.84-5.20); LYMPHOCYTES PERCENT AUTO 31 % (21-46); MONOCYTES ABSOLUTE AUTO 0.42 K/mm3 (0.16-1.47); MONOCYTES PERCENT AUTO 10 % (4-13); Mean Corpuscular HGB 32.6 pg (26.0-34.0); Mean Corpuscular HGB Conc 32.2 g/dL (31.5-36.5); Mean Corpuscular Volume 101 fL (80-100); Mean Platelet Volume 10.8 fL (9.1-12.4); NEUTROPHILS PERCENT AUTO 57 % (41-73); Platelet Count 146 K/mm3 (150-400); RDW Coefficient Variation 17.2 % (11.7-14.2); RDW Standard Deviation 61.5 fL (35.1-46.3); Red Blood Cell Count 2.36 M/mm3 (4.30-5.90); White Blood Cell Count 4.19 K/mm3 (4.00-11.30)
[2018-06-17 05:27] LABS: BASOPHILS ABSOLUTE AUTO 0.04 K/mm3 (0.00-0.23); BASOPHILS PERCENT AUTO 1 % (0-2); EOSINOPHILS ABSOLUTE AUTO 0.06 K/mm3 (0.00-0.68); EOSINOPHILS PERCENT AUTO 2 % (0-6); Hematocrit 24.2 % (37.0-53.0); IMMATURE GRAN ABSOLUTE AUTO 0.02 K/mm3 (0.00-0.10); IMMATURE GRAN PERCENT AUTO 1 % (0-1); LYMPHOCYTES ABSOLUTE AUTO 1.21 K/mm3 (0.84-5.20); LYMPHOCYTES PERCENT AUTO 29 % (21-46); MONOCYTES ABSOLUTE AUTO 0.43 K/mm3 (0.16-1.47); MONOCYTES PERCENT AUTO 10 % (4-13); Mean Corpuscular HGB 33.8 pg (26.0-34.0); Mean Corpuscular HGB Conc 33.1 g/dL (31.5-36.5); Mean Corpuscular Volume 102 fL (80-100); Mean Platelet Volume 10.7 fL (9.1-12.4); NEUTROPHILS ABSOLUTE AUTO 2.37 K/mm3 (1.96-9.15); NEUTROPHILS PERCENT AUTO 57 % (41-73); Platelet Count 145 K/mm3 (150-400); RDW Coefficient Variation 17.3 % (11.7-14.2); RDW Standard Deviation 63.7 fL (35.1-46.3); Red Blood Cell Count 2.37 M/mm3 (4.30-5.90); White Blood Cell Count 4.13 K/mm3 (4.00-11.30)
[2018-06-17 05:46] LABS: Anion Gap 4 mmol/L (6-16); Blood Urea Nitrogen 14 mg/dL (8-24); Bun/Creatinine Ratio 18.8 (12.0-20.0); CO2, Blood 29 mmol/L (21-32); Calcium, Blood 7.5 mg/dL (8.5-10.1); Chloride, Blood 108 mmol/L (98-108); Creatinine, Blood 0.74 mg/dL (0.60-1.20); Glomerular Filtration Rate >60 (60-); Glucose, Blood 93 mg/dL (70-99); Potassium, Blood 3.4 mmol/L (3.5-5.5); Sodium, Blood 141 mmol/L (136-145)
--- NOTE | 2018-06-17 06:45 | NUR ---
SHIFT SUMMARY PT AWAKE ON/OFF T/O NIGHT. AOX4. DENIES NAUSEA OR SOB. REPORTS 5-9/10 PAIN IN BLE THAT RAIDIATES FROM HIPS TO TOES & STATES IT IS DUE TO CHRONIC NEUROPATHY. MEDICATED 1X W/FANTANYL, 2X W/OXYCODONE & W/ASPERCREME PER ORDERS. REPORTED FEELING AGITATED & ANXIOUS, THEREFORE WAS MEDICATED W/LIBRIUM PER ORDERS FOR A CIWA SCORE OF 5. 1 UNIT OF RBC WAS GIVEN PER ORDERS LAST NIGHT. CALL LIGHT IS IN REACH & PT USES IT APPROPRIATELY.
--- NOTE | 2018-06-17 18:18 | NUR ---
PATIENT A/O X4, UP WITH 2 ASSIST AND FWW TO CHAIR/BSC. VOIDING IN URINAL. 2 BM'S THIS SHIFT, LAST ONE LOOSE AND BROWN. PICC LINE TO R UPPER ARM WNL AND SL BETWEEN MEDS. ALBUMIN GIVEN THIS AM. TAKES PILLS ONE AT A TIME WITH WATER. TOLERATING PUREE DIET. OSTOMY BAG OVER PARACENTESIS SITE TO CATCH DRAIANGE. MEPILEX TO COCCYX FOR PROTECTION ONLY. PAIN LEVEL HIGH THROUGHOUT THIS SHIFT DESPITE MEDICATIONS. OXYCODONE GIVEN Q6 HOURS AND ASPERCREME PATCHES TO FEET. FAMILY AT BEDSIDE FOR MOST OF SHIFT AND ARE VERY SUPPORTIVE. PATIENT CALLS FREQUENTLY AND IS VERY ANXIOUS AT TIMES. LIBRIUM GIVEN X1 THIS SHIFT.
[2018-06-18 04:50] LABS: Hematocrit 25.6 % (37.0-53.0); Hemoglobin 8.5 g/dL (13.5-17.5); Mean Corpuscular HGB Conc 33.2 g/dL (31.5-36.5); Mean Corpuscular Volume 102 fL (80-100); Mean Platelet Volume 11.2 fL (9.1-12.4); Platelet Count 150 K/mm3 (150-400); RDW Coefficient Variation 16.7 % (11.7-14.2); RDW Standard Deviation 62.8 fL (35.1-46.3); White Blood Cell Count 4.48 K/mm3 (4.00-11.30)
[2018-06-18 05:06] LABS: Anion Gap 5 mmol/L (6-16); Blood Urea Nitrogen 13 mg/dL (8-24); Bun/Creatinine Ratio 18.9 (12.0-20.0); CO2, Blood 29 mmol/L (21-32); Calcium, Blood 7.4 mg/dL (8.5-10.1); Chloride, Blood 108 mmol/L (98-108); Creatinine, Blood 0.69 mg/dL (0.60-1.20); Glomerular Filtration Rate >60 (60-); Glucose, Blood 105 mg/dL (70-99); Potassium, Blood 3.5 mmol/L (3.5-5.5); Sodium, Blood 142 mmol/L (136-145)
--- NOTE | 2018-06-18 07:30 | NUR ---
a+o, pain not fully controlled with home medications or with prescriptions, call light in reach, medicated as prescribed, saline locked, room air, walking rounds completed with day staff.
--- NOTE | 2018-06-18 17:05 | NUR ---
SHIFT SUMMARY PATIENT HAS GOTTEN PROGRESSIVELY MORE RELAXED TODAY. APPEARS TO BE TOELRATING THE INCREASE IN GABAPENTIN WITH NO ISSUES.
[2018-06-19 05:46] LABS: Anion Gap 6 mmol/L (6-16); Blood Urea Nitrogen 14 mg/dL (8-24); CO2, Blood 28 mmol/L (21-32); Calcium, Blood 7.7 mg/dL (8.5-10.1); Chloride, Blood 107 mmol/L (98-108); Creatinine, Blood 0.67 mg/dL (0.60-1.20); Glomerular Filtration Rate >60 (60-); Glucose, Blood 113 mg/dL (70-99); Potassium, Blood 3.5 mmol/L (3.5-5.5); Sodium, Blood 141 mmol/L (136-145)
--- NOTE | 2018-06-19 07:12 | NUR ---
a+o, pain not controlled with prescribed medication, call light in reach, report given to returning day shift, saline locked, roon air
--- NOTE | 2018-06-19 16:19 | NUR ---
SHIFT SUMMARY PATIENT HAS BEEN MUCH MORE AWAKE TODAY. HIS PAIN APPEARS ADEQUATELY CONTROLLED WITH THE PRN MEDICATIONS AND GABAPENTIN. UP WITH 1 PERSON MAX ASSIST (SON ASSISTING) TO BATHROOM. FREQUENT BM'S. GIVING EDUCATION ON THE IMPORTANCE OF USING LACTULOSE.
--- NOTE | 2018-06-19 18:32 | NUR ---
SHIFT SUMMARY PATIENT FAMILY ALERTED THIS RN TO PATIENT BEING VERY DROWSY. BILATERAL HANDS EQUAL IN RENAL TECHNICIAN. FEET EQUAL REACTIVE. EYES EQUAL AND REACTIVE. CONVERSIVE WITH STAFF APPROPRIATE.
[2018-06-20 04:58] LABS: BASOPHILS ABSOLUTE AUTO 0.05 K/mm3 (0.00-0.23); BASOPHILS PERCENT AUTO 1 % (0-2); EOSINOPHILS ABSOLUTE AUTO 0.09 K/mm3 (0.00-0.68); EOSINOPHILS PERCENT AUTO 2 % (0-6); Hematocrit 30.2 % (37.0-53.0); Hemoglobin 9.9 g/dL (13.5-17.5); IMMATURE GRAN ABSOLUTE AUTO 0.04 K/mm3 (0.00-0.10); IMMATURE GRAN PERCENT AUTO 1 % (0-1); LYMPHOCYTES ABSOLUTE AUTO 1.25 K/mm3 (0.84-5.20); LYMPHOCYTES PERCENT AUTO 25 % (21-46); MONOCYTES ABSOLUTE AUTO 0.55 K/mm3 (0.16-1.47); MONOCYTES PERCENT AUTO 11 % (4-13); Mean Corpuscular HGB 33.6 pg (26.0-34.0); Mean Corpuscular HGB Conc 32.8 g/dL (31.5-36.5); Mean Corpuscular Volume 102 fL (80-100); Mean Platelet Volume 11.3 fL (9.1-12.4); NEUTROPHILS ABSOLUTE AUTO 3.03 K/mm3 (1.96-9.15); NEUTROPHILS PERCENT AUTO 60 % (41-73); Platelet Count 142 K/mm3 (150-400); RDW Coefficient Variation 16.2 % (11.7-14.2); RDW Standard Deviation 61.4 fL (35.1-46.3); Red Blood Cell Count 2.95 M/mm3 (4.30-5.90); White Blood Cell Count 5.01 K/mm3 (4.00-11.30)
[2018-06-20 05:16] LABS: Anion Gap 4 mmol/L (6-16); Blood Urea Nitrogen 14 mg/dL (8-24); Bun/Creatinine Ratio 20.2 (12.0-20.0); CO2, Blood 33 mmol/L (21-32); Chloride, Blood 106 mmol/L (98-108); Creatinine, Blood 0.69 mg/dL (0.60-1.20); Glomerular Filtration Rate >60 (60-); Glucose, Blood 76 mg/dL (70-99); Potassium, Blood 3.7 mmol/L (3.5-5.5); Sodium, Blood 143 mmol/L (136-145)
--- NOTE | 2018-06-20 07:16 | NUR ---
somnolent, call light in reach, saline locked, room air, walking rounds completed with day staff
[2018-06-20 11:39] LABS: U Amphetamine Screen Not Detected; U Barbituate Screen Not Detected; U Benzodiazapine Screen DETECTED; U Buprenorphine Screen Not Detected; U Cannabinoids Screen Not Detected; U Cocaine Screen Not Detected; U Methadone Screen Not Detected; U Methamphetamine Screen Not Detected; U Opiates Screen Not Detected; U Oxycodone Screen DETECTED; U Phencyclidine Screen Not Detected; U Propoxyphene Screen Not Detected
--- NOTE | 2018-06-20 13:16 | NUR ---
PT SITTING ON EDGE OF BED C/O "I ATE TOO MUCH AND IT'S SITTING ON MY STRICTURE" AIRWAY PATENT NO LABORED BREATHING. REFUSED OFFER FOR NAUSEA MEDICATION.
--- NOTE | 2018-06-20 19:25 | NUR ---
SHIFT SUMMARY PATIENT IS ALERT AND ORIENTED. HE COMPLAINS OF PAIN WHICH IS BEING TREATED WITH ORDERED OXYCODONE. HIS SISTER HAS SPENT MOST OF THE DAY WITH HIM. 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 BECAUSE OF THIS WE HAVE BEEN AVOIDING MEDS WHOLE WITH WATER AND RATHER TRYING TO USE APPLESAUCE AND CRUSHING/OPENING PILLS IF POSSIBLE. HE SPENT MOST OF THE AFTERNOON IN HIS CHAIR WATCHING TELEVISION.
[2018-06-21 04:51] LABS: BASOPHILS ABSOLUTE AUTO 0.06 K/mm3 (0.00-0.23); BASOPHILS PERCENT AUTO 1 % (0-2); EOSINOPHILS ABSOLUTE AUTO 0.09 K/mm3 (0.00-0.68); EOSINOPHILS PERCENT AUTO 2 % (0-6); Hematocrit 28.6 % (37.0-53.0); Hemoglobin 9.2 g/dL (13.5-17.5); IMMATURE GRAN ABSOLUTE AUTO 0.01 K/mm3 (0.00-0.10); IMMATURE GRAN PERCENT AUTO 0 % (0-1); LYMPHOCYTES ABSOLUTE AUTO 1.51 K/mm3 (0.84-5.20); LYMPHOCYTES PERCENT AUTO 27 % (21-46); MONOCYTES ABSOLUTE AUTO 0.57 K/mm3 (0.16-1.47); MONOCYTES PERCENT AUTO 10 % (4-13); Mean Corpuscular HGB 32.9 pg (26.0-34.0); Mean Corpuscular HGB Conc 32.2 g/dL (31.5-36.5); Mean Corpuscular Volume 102 fL (80-100); Mean Platelet Volume 11.5 fL (9.1-12.4); NEUTROPHILS ABSOLUTE AUTO 3.32 K/mm3 (1.96-9.15); NEUTROPHILS PERCENT AUTO 60 % (41-73); Platelet Count 191 K/mm3 (150-400); RDW Coefficient Variation 16.1 % (11.7-14.2); RDW Standard Deviation 60.7 fL (35.1-46.3); White Blood Cell Count 5.56 K/mm3 (4.00-11.30)
[2018-06-21 05:07] LABS: Anion Gap 4 mmol/L (6-16); Blood Urea Nitrogen 16 mg/dL (8-24); Bun/Creatinine Ratio 21.7 (12.0-20.0); CO2, Blood 34 mmol/L (21-32); Chloride, Blood 104 mmol/L (98-108); Creatinine, Blood 0.74 mg/dL (0.60-1.20); Glomerular Filtration Rate >60 (60-); Glucose, Blood 82 mg/dL (70-99); Magnesium, Blood 1.9 mg/dL (1.6-2.4); Potassium, Blood 3.7 mmol/L (3.5-5.5); Sodium, Blood 142 mmol/L (136-145)
--- NOTE | 2018-06-21 05:52 | NUR ---
SHIFT SUMMARY PT SLEPT WELL T/O NIGHT. AOX4. VSS. DENIES NAUSEA OR SOB. REPORTED DIFFICULTY SLEEPING LAST NIGHT & ASKED FOR MELATONIN, HOWEVER WHEN I WENT TO ASSESS PT AFTER REQUEST HE WAS ASLEEP. REPORTS 8-9/10 PAIN IN BLE & ASKS FOR PAIN MEDS ONLY A FEW HOURS AFTER ADMINISTRATION & REPORTS LITTLE RELIEF, MEDICATED 2X W/OXYCODONE PER ORDERS. THIS AM PT REPORTS FEELING "WEAK" & HAS BEEN A 2 MAX ASSIST W/GAIT BELT & FWW TO [facility] [place], WE HAVE NOT AMBULATED TO RESTROOM SINCE INCREASED WEAKNESS. CALL LIGHT IS IN REACH.
--- NOTE | 2018-06-21 18:29 | NUR ---
SHIFT SUMMARY PT AXO, MOSTLY COOPERATIVE WITH CARE. PT COMPLAINED OF PAIN, MEDICATED PER EMAR. VSS. PICC FLUSES, CAPS CHANGED THIS SHIFT. PT UP TO CHAIR FOR LUNCH. 2 ASSIST TO BSC OR RECLINER WITH GB AND FWW. NO ACUTE CHANGES. PT REFUSED MEDS TAKES ORDERED, PREFERS TO TAKE WITH WATER UNLESS LARGE PILL. PT SLEEPING AT THIS TIME, FAMILY PRESENT IN ROOM, BED IN LOW POSITIN, CALL LIGHT WITHIN REACH.
--- NOTE | 2018-06-22 00:17 | NUR ---
CHANGE IN PT MOOD/APPEARANCE WENT IN ROOM AROUND 2345 TO GIVE SCHEDULED TYLENOL & ULTRAM PER ORDERS. PT WAS VERY GROGGY/SLEEPY MORE THAN I'VE WITNESSED BEFORE. ABLE TO ANSWER QUESTIONS APPROPRIATELY & FOLLOW DIRECTIONS, HOWEVER SLOW RESPONSE. ASSESSED PAIN LEVEL BEFORE MEDICATION & HE REPORTED 4/10 WHICH IS A CHANGED BECAUSE PT USUALLY RATES PAIN 8-10/10 W/VERY LITTLE RELIEF FROM MEDICATION. WOKE UP MORE TO USE URINAL ON SIDE OF BED & REPORTED FEELING OKAY. HE ASKED ME "WHEN DID MY BROTHER LEAVE," INFORMED PT I WAS UNAWARE BROTHER WAS HERE, SINCE I ONLY SAW DAUGHTER & SON IN ROOM. HAD BAND CUTTING MACHINE OPERATOR CHECK VITALS & THEY WERE WNL. BAND CUTTING MACHINE OPERATOR INFORMED ME HE ASKED HER "DO I HAVE A ROOMATE?" AND WAS MORE CONFUSED/SPACEY THAN USUAL. I WILL CONTINUE TO MONITOR PT.
--- NOTE | 2018-06-22 05:44 | NUR ---
SHIFT SUMMARY PT SLEPT VRY SOUNDLY T/O MOST OF NIGHT, APPEARED MORE DROWSY/GROGGY THAN USUAL, READ PREVIOUS NOTE. AOX4, ANSWERS QUESTIONS APPROPRIATELY. VSS. THIS AM PT ASKED "DID THEY GET THE DOG CALMED DOWN & TAKEN CARE OF?" I ASKED PT WHAT DOG HE WAS REFERRING TO & HE STATED "ISN'T THERE A DOG OUT IN THE [place]?" INFORMED PT NO DOG HAS BEEN IN THE [place] & HE ASKED ME "WHAT THE HECK IS WRONG WITH ME?" & PT STATED HE FELT MORE CONFUSED THAN USUAL. DENIES SOB. REPORTED NAUSEA 1X LAST NIGHT & WAS MEDICATED W/ZOFRAN PER ORDERS. REPORTS 7-10/10 PAIN IN BLE/BACK/HIPS, MEDICATED W/OXYCODONE, TYLENOL & ULTRAM PER ORDERS, PT DOES REPORT SOME RELIEF FROM PAIN MEDICATION. PT VERY WEAK & IS A 2 ASSIST W/TRANSFERS. CALL LIGHT IS IN REACH & I WILL CONTINUE TO MONITOR.
[2018-06-22 06:14] LABS: Anion Gap 3 mmol/L (6-16); Blood Urea Nitrogen 17 mg/dL (8-24); Bun/Creatinine Ratio 23.1 (12.0-20.0); CO2, Blood 34 mmol/L (21-32); Calcium, Blood 8.1 mg/dL (8.5-10.1); Chloride, Blood 103 mmol/L (98-108); Creatinine, Blood 0.74 mg/dL (0.60-1.20); Glomerular Filtration Rate >60 (60-); Glucose, Blood 106 mg/dL (70-99); Potassium, Blood 3.7 mmol/L (3.5-5.5); Sodium, Blood 140 mmol/L (136-145)
--- NOTE | 2018-06-22 16:23 | NUR ---
PT CONTINUES TO COMPLAIN OF PAIN 8-10/21. PT IS SITTING QUIETLY, VISITING WITH FAMILY. PT APPEARS ABSENT OF PAIN INDICATORS AND STILL COMPLAINS OF SEVERE PAIN. PT MEDICATED PER EMAR. PT'S SISTER STATES THAT PT DOES NOT COMPLAIN OF PAIN WHEN HE'S NOT BEING SPECIFICALLY ASKED BY NURSE. PT SITTING QUIETLY TALKING WITH SON, DRIFTING IN AND OUT OF SLEEP
--- NOTE | 2018-06-22 18:34 | NUR ---
SHIFT SUMMARY PT AXO TO SELF, FAMILY AND FOLLOWING DIRECTIONS THOUGH IS HALLUCINATING AND CONFUSED AT TIMES. DR BOLTON. PT IS DROWSY AT THIS TIME RECLINING IN CHAIR WITH FAMILY PRESENT IN THE ROOM. VSS THOUGH NURSE NOTES AT THIS TIME THAT PT BP AT 1646 WAS 98/66. NURSE WAS NOT NOTIFIED BY OWNER SPA DIRECTOR WHO MEASURED VITALS. PICC PATENT AND SALINE LOCKED. SEE NOTE ABOUT PAIN. PT DENIES SOB AND N/V. PT UP WITH HEAVY TWO ASSIST AND FWW AND GB. FAMILY HAS BEEN TRANSFERRING PT WHEN THEY ARE HERE, STATING THAT THEY FEEL SAFE TO DO SO. CHAIR ALARM ON, CALL LIGHT WITHIN REACH. URINE OUTPUT FOR THIS SHIFT HAS BEEN 550 ML. AT 1440 PT WAS ABLE TO AMBULATE TO BATHROOM AND VOID 250 ML AND THEN WAS BLADDER SCANNED REVEALING >[address] RAZO NOTIFIED AT 1450 WHO ORDERED A ONE TIME STRAIGHT CATH WHICH ONLY RESULTED IN 100ML OUT. THIS DISCUSSED WITH CHARGE WHO THINKS THE RESULTS SKEWED D/T ACITES.
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
[2018-06-23 04:42] LABS: Anion Gap 5 mmol/L (6-16); Blood Urea Nitrogen 16 mg/dL (8-24); Bun/Creatinine Ratio 23.1 (12.0-20.0); CO2, Blood 35 mmol/L (21-32); Chloride, Blood 101 mmol/L (98-108); Creatinine, Blood 0.69 mg/dL (0.60-1.20); Glomerular Filtration Rate >60 (60-); Glucose, Blood 81 mg/dL (70-99); Sodium, Blood 141 mmol/L (136-145)
--- NOTE | 2018-06-23 06:39 | NUR ---
SHIFT SUMMARY PT SLEPT SOUNDLY MOST OF SHIFT, VERY DROWSY/GROGGY, HELD MIDNIGHT PAIN MED BECAUSE PT WOULD NOT STAY AWAKE ENOUGH TO ANSWER QUESTIONS & WAS FALLING ASLEEP MID-SENTENCE & WAS ASPIRATION RISK. CONFUSION KEEPS INCREASING IN PT, THIS AM PT ASKED ME "HOW DID I GET HERE?" "WHERE AM I?" & STATED "USUALLY I DON'T DRINK AND DRIVE." AOX2, FOLLOWS DIRECTIONS WHEN HE DOESN'T FALL ASLEEP DURING INSTRUCTIONS. INFORMED DR DEY OF CHANGE IN MENTATION & HE ORDERED AMMONIA & PRN LACTOLOSE SINCE NO BM IN 4 DAYS. PT HAD LARGE SOFT BM THIS AM. PT VOIDED 4X THIS SHIFT & POST VOID BLADDER SCAN SHOWED 487ML IN BLADDER, UNAWARE IF SCAN WAS SHOWING ASCITES THEREFORE DID NOT STRAIGHT CATH SINCE ORDER STATES >500 STRAIGHT CATH. VSS. REPORTED NAUSEA 1X LAST NIGHT & MEDICATED W/ZOFRAN PER ORDERS. DENIES SOB, HAS E/U RESPIRATIONS. DID NOT REPORT ANY PAIN UNTIL THIS AM WHEN HE WAS MORE ALERT, REPORTED 8/10 PAIN & MEDICATED 1X W/OXYCODONE PER ORDERS. BED ALARM IS ON SINCE PT HAS NOT USED CALLLIGHT ENTIRE SHIFT. I WILL CONTINUE TO MONITOR PT.
--- NOTE | 2018-06-23 18:36 | NUR ---
PT CONFUSED THIS MORNING, IMPROVED THRU OUT THE SHIFT. POSSIBLE DISCHARGE TO SNF TOMORROW. NO ACUTE CHANGES NOTED THIS SHIFT, WILL CONTINUE TO MONITOR AND REPORT TO ONCOMING RN
[2018-06-24 04:50] LABS: Anion Gap 4 mmol/L (6-16); Blood Urea Nitrogen 15 mg/dL (8-24); Bun/Creatinine Ratio 21.9 (12.0-20.0); CO2, Blood 35 mmol/L (21-32); Calcium, Blood 8.4 mg/dL (8.5-10.1); Chloride, Blood 100 mmol/L (98-108); Creatinine, Blood 0.68 mg/dL (0.60-1.20); Glomerular Filtration Rate >60 (60-); Glucose, Blood 83 mg/dL (70-99); Potassium, Blood 3.9 mmol/L (3.5-5.5); Sodium, Blood 139 mmol/L (136-145)
--- NOTE | 2018-06-24 05:06 | NUR ---
SHIFT SUMMARY: PT DOES NOT HAVE ANY HALLUCINATIONS TONIGHT. PT DOES HAVE AN EVENT OF EXITING BED, GOING TO DOOR, AND URINATING HIMSELF. BED ALARM GOES OFF AND PT IS FOUND AT DOOR STANDING IN URINE. PT STATES "I FORGOT WHERE I WAS AND COULDN'T MAKE IT TO THE BATHROOM". PT CLEANED AND RETURNED TO BED. PT ABLE TO REPORT LOCATION, SELF, DATE (MONTH), AND CURRENT PRESIDENT AFTER BEING SETTLED BACK IN BED. PT VERY APOLOGETIC AND EMBARASSED OF THIS EVENT OCCURING. SEVERE ABDOMINAL DISTENTION R/T ASCITES NOTED TO ABDOMEN, ABDOMEN FIRM. PT WILL HAVE PARACENTESIS BEFORE POSSIBLE D/C TO SNF TODAY. 2+ PITTING EDEMA TO BILAT FT NOTED. PICC LINE TO IVANA IS PATENT AND DRAWING AM LABS. NO OTHER CHANGES TO REPORT. WILL CONT TO MONITOR AND PROVIDE CARE UNTIL PRESUMED BY ONCOMING RN.
--- NOTE | 2018-06-24 10:00 | NUR ---
PT HAS BEEN AWAKE, ALERT AND ORIENTED TODAY, NO HALLUCINATIONS WERE REPORT LAST NIGHT AND NONE SO FAR TODAY. PT IS USING THE CALL IBARRA APPROPRIATELY, AND IS ABLE TO WALK TO THE BR WITH WALKER, GAIT BELT AND ONE ASSIST. WILL CONTINUE TO MONITOR.
--- NOTE | 2018-06-24 18:00 | NUR ---
PT REMAINS ALERT AND ORIENTED, NO HALLUCINATIONS OR CONFUSION NOTED T/O THIS SHIFT. USING CALL IBARRA APPROPRIATELY AND IS LOOKING FORWARD TO DISCHARGE TO FACILITY. WILL CONTINUE TO MONITOR.
--- NOTE | 2018-06-24 18:39 | NUR ---
PT WENT TO ULTRASOUND FOR PARACENTESIS THIS MORNING, BUT D/T LACTULOSE WORKING HAD TO RETURN TO ROOM WITH PROCEDURE UNDONE. HE WAS ABLE TO RETURN TO ULTRASOUND THIS AFTERNOON AND HAD A TOTAL OF 5.3 LITERS OF FLUID REMOVED. APPEARED TO HAVE TOLERATED THIS WELL. NO ACUTE CHANGES NOTED THIS SHIFT, WILL CONTINUE TO MONITOR AND REPORT TO ONCOMING RN.
--- NOTE | 2018-06-25 06:10 | NUR ---
SHIFT SUMMARY: PT DOES NOT HAVE ANY ACUTE CONFUSION OR HALLUCINATIONS. CONT TO BE A&O. BED ALARM IS ON FOR SAFETY PT CAN BE IMPULSIVE AND UNAWARE OF LIMITATIONS. PT RECIEVES OXYCONTIN XR AND OXYCODONE ONCE FOR PAIN TO ABDOMEN, FEET, AND HIPS. PT REPORTS THE ADDITION OF OXYCONTIN XR HAS PROVIDED MORE PAIN RELIEF COVERAGE. PT IS AWAITING DC TO SNF. WILL CONT TO MONITOR AND PROVIDE CARE UNTIL PRESUMED BY ONCOMING RN.
[2018-06-25 11:41] LABS: U Amphetamine Screen Not Detected; U Barbituate Screen Not Detected; U Benzodiazapine Screen DETECTED; U Methamphetamine Screen Not Detected
[2018-06-25 11:42] LABS: U Buprenorphine Screen Not Detected; U Cannabinoids Screen Not Detected; U Cocaine Screen Not Detected; U Methadone Screen Not Detected; U Opiates Screen Not Detected; U Oxycodone Screen DETECTED; U Phencyclidine Screen Not Detected; U Propoxyphene Screen Not Detected
--- NOTE | 2018-06-25 12:53 | NUR ---
HR RETURNED TO 160S THIS RN NOTIFIED BY PCU CARGO AND CONTAINER INSPECTOR THAT PT IS IN THE 160-170S. DR. LEON NOTIFIED. A SECOND DOSE OF CARDIZEM 15 IV ORDERED. WILL CONTINUE TO MONITOR.
--- NOTE | 2018-06-25 16:41 | NUR ---
SHIFT SUMMARY PT NO LONGER COMPLAINING OF NAUSEA. PT CONTINUES TO STATE THAT HIS PAIN IS 8/10. PT AMBULATING TO BATHROOM A SBA. NO OTHER CHANGES IN ASSESSMENT AT THIS TIME. VSS. DR. SMITH NOTIFIED THAT PT SISTER IS REQUESTING TO SPEAK WITH HIM. WILL CONTINUE TO MONITOR UNTIL TURNOVER IS COMPLETE.
--- NOTE | 2018-06-25 19:33 | NUR ---
BED EXIT -- PT SETS OFF BED ALARM, STATING HE NEEDS TO "GO HOME AND GET FISIING GEAR TOGETHER FOR THE TRIP TOMORROW." REORIENTED PT TO HOSPITAL AND ROOM. PT NODS HEAD AND RETURNS TO BED. BED ALARM ON FOR SAFETY.
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
--- NOTE | 2018-06-25 20:39 | NUR ---
PT TEARFUL, STATING "I DONT KNOW WHY IM SO CONFUSED." OFFERED THERAPEUTIC COMMUNCATION AND REORIENTED PT. PT STATES FEELING BETTER, LYING IN BED WITH ALARM ON FOR SAFETY.
--- NOTE | 2018-06-26 00:36 | NUR ---
PT SETS OFF BED ALARM, COMES OUT TO HALLWAY STATES, "IM LOOKING FOR MY ROOM." RETURNED AND REORIENTED PATIENT TO ROOM. PT IN BED AT THIS TIME, BED ALARM ON FOR SAFETY, WILL CONT TO MONITOR.
--- NOTE | 2018-06-26 08:24 | NUR ---
PATIENT DID NOT EAT BREAKFAST THIS SHIFT. HE STATED HE DID NOT FEEL LIKE EATING. RN NOTIFIED.
[2018-06-26] MEDS ORDERED: Acetaminophen325 M1 PO (12:22)
[2018-06-26] MEDS ORDERED: Bumetanide2 MG PO (12:24)
[2018-06-26] MEDS ORDERED: FAMO20 PO (12:25)
[2018-06-26] MEDS ORDERED: ESOM20 PO (12:25)
[2018-06-26] MEDS ORDERED: GABA400 PO (12:26)
[2018-06-26] MEDS ORDERED: OXYC10ER PO (12:26)
[2018-06-26] MEDS ORDERED: LACTULOSE20 GM/30 M PO (12:26)
[2018-06-26] MEDS ORDERED: SERT50 PO (12:27)
[2018-06-26] MEDS ORDERED: TAMS.4ER PO (12:27)
[2018-06-26] MEDS ORDERED: Florastor250 MG PO (12:27)
[2018-06-26] MEDS ORDERED: ROXICODONE5 MG PO (12:27)
[2018-06-26] MEDS ORDERED: Spironolactone100 MG PO (12:27)
--- NOTE | 2018-06-26 13:05 | NUR ---
PATIENT DID NOT EAT LUNCH THIS SHIFT. PATIENT STATED HE DID NOT FEEL LIKE EATING AND WAS NOT HUNGRY.
--- NOTE | 2018-06-26 17:22 | NUR ---
NO ACUTE CHANGES THIS SHIFT. PATIENT WAS GOING TO D/C TODAY TO [facility], BUT WAS UNABLE TO DUE TO STAFFING. PATIENT WILL D/C IN AM. UP WITH FWW AND 1 ASSIST. TOLERATING SMALL AMOUNTS OF PUREE DIET. VSS THIS SHIFT. PAIN CONTINUES TO BE 7/10 DESPITE SCHEDULED AND PRN MEDICATIONS. FALL PRECAUTIONS IN PLACE PER UNIT PROTOCOL. PATIENT HAS NOT BEEN USING CALL LIGHT TODAY. TAKES PILLS CRUSHED IN PUDDING. WITHDRAWN AND DEPRESSED TODAY, BUT COOPERATIVE WITH CARE.
[2018-06-27 05:00] LABS: BASOPHILS ABSOLUTE AUTO 0.03 K/mm3 (0.00-0.23); BASOPHILS PERCENT AUTO 1 % (0-2); EOSINOPHILS ABSOLUTE AUTO 0.07 K/mm3 (0.00-0.68); EOSINOPHILS PERCENT AUTO 2 % (0-6); Hemoglobin 9.6 g/dL (13.5-17.5); IMMATURE GRAN ABSOLUTE AUTO 0.01 K/mm3 (0.00-0.10); IMMATURE GRAN PERCENT AUTO 0 % (0-1); LYMPHOCYTES ABSOLUTE AUTO 1.17 K/mm3 (0.84-5.20); LYMPHOCYTES PERCENT AUTO 31 % (21-46); MONOCYTES ABSOLUTE AUTO 0.44 K/mm3 (0.16-1.47); MONOCYTES PERCENT AUTO 12 % (4-13); Mean Corpuscular Volume 100 fL (80-100); Mean Platelet Volume 9.7 fL (9.1-12.4); NEUTROPHILS ABSOLUTE AUTO 2.06 K/mm3 (1.96-9.15); NEUTROPHILS PERCENT AUTO 54 % (41-73); Platelet Count 226 K/mm3 (150-400); RDW Coefficient Variation 15.8 % (11.7-14.2); RDW Standard Deviation 58.3 fL (35.1-46.3); White Blood Cell Count 3.78 K/mm3 (4.00-11.30)
--- NOTE | 2018-06-27 05:27 | NUR ---
SHIFT SUMMARY PT HAS HAD A GOOD NIGHT. HAS SET BED ALARM OFF A FEW TIMES, BUT REDIRECTS EASILY. USING URINAL AT BEDSIDE. NO ACUTE CHANGES NOTED, WILL CONTINUE TO MONITOR.
[2018-06-27 05:33] LABS: Alanine Aminotransfer (ALT/SGP 13 U/L (12-78); Albumin, Blood 2.4 g/dL (3.4-5.0); Albumin/Globulin Ratio 0.7 (0.8-1.8); Alk Phos 91 U/L (50-136); Anion Gap 3 mmol/L (6-16); Aspartate Aminotrans (AST/SGOT 22 U/L (12-37); Bilirubin, Total 0.6 mg/dL (0.1-1.0); Blood Urea Nitrogen 9 mg/dL (8-24); Bun/Creatinine Ratio 12.1 (12.0-20.0); CO2, Blood 36 mmol/L (21-32); Calcium, Blood 8.4 mg/dL (8.5-10.1); Chloride, Blood 103 mmol/L (98-108); Creatinine, Blood 0.74 mg/dL (0.60-1.20); Globulin, Blood 3.4 g/dL (2.2-4.0); Glomerular Filtration Rate >60 (60-); Glucose, Blood 83 mg/dL (70-99); Potassium, Blood 3.8 mmol/L (3.5-5.5); Sodium, Blood 142 mmol/L (136-145); Total Protein, Blood 5.8 g/dL (6.4-8.2)
--- NOTE | 2018-06-27 14:35 | NUR ---
PATIENT DISCHARGE: PATIENT DISCHARGE/FACILITY TRANSFER TO [facility] THIS SHIFT. MEDICATION RECONCILIATION COMPLETED; MED LIST FAXED TO FACILITY; [facility] PROVIDED IN DISCHARGE PACKET FOR CONTROLLED SUBSTANCES. PATIENT TRANSPORTED TO EXIT BY [facility] WITH WHEELCHAIR AT 1305. PATIENT DEPARTED [facility] VIA [facility].
== END 2018-06-27 13:30 | DRG 917 ==
LOC: ER 12:15 → ICUW 14:28 → PCU 14:28 → ICUW 16:45 → PCU 06-08 15:12 → ICUW 06-11 03:31 → PCU 06-12 16:52 → MEDS 06-16 04:55 → ENPENDDIS 06-26 12:04 → EDPENDDIS 06-26 12:04 → MEDS 06-27 13:30
PROVIDERS: Emergency Medicine; Family Medicine; Hospitalist; Internal Medicine; Internal Medicine Gastroenterology; ADMIT Internal Medicine
PROC: 0W3P8ZZ Control Bleeding in Gastrointestinal Tract, Via Natural or Artificial Opening Endoscopic (ICD-10-PCS; 2018-06-11)
PROC: 30233N1 Transfusion of Nonautologous Red Blood Cells into Peripheral Vein, Percutaneous Approach (ICD-10-PCS; principal; 2018-06-11 13:45)
PROC: 0W9G3ZX Drainage of Peritoneal Cavity, Percutaneous Approach, Diagnostic (ICD-10-PCS; 2018-06-11 13:45)
PROC: 02HV33Z Insertion of Infusion Device into Superior Vena Cava, Percutaneous Approach (ICD-10-PCS; 2018-06-11 13:45)
DX: T40.601A Poisoning by unspecified narcotics, accidental (unintentional), initial encounter (principal); G92 Toxic encephalopathy; K28.4 Chronic or unspecified gastrojejunal ulcer with hemorrhage; R65.21 Severe sepsis with septic shock; D62 Acute posthemorrhagic anemia; N39.0 Urinary tract infection, site not specified; K76.6 Portal hypertension; F10.27 Alcohol dependence with alcohol-induced persisting dementia; K72.90 Hepatic failure, unspecified without coma; B96.20 Unspecified Escherichia coli [E. coli] as the cause of diseases classified elsewhere; F17.210 Nicotine dependence, cigarettes, uncomplicated; K21.9 Gastro-esophageal reflux disease without esophagitis; K70.11 Alcoholic hepatitis with ascites; Z98.84 Bariatric surgery status; I10 Essential (primary) hypertension; G62.9 Polyneuropathy, unspecified; Z76.5 Malingerer [conscious simulation]; G89.29 Other chronic pain; M79.2 Neuralgia and neuritis, unspecified; R13.10 Dysphagia, unspecified; I95.89 Other hypotension; B95.2 Enterococcus as the cause of diseases classified elsewhere; B95.62 Methicillin resistant Staphylococcus aureus infection as the cause of diseases classified elsewhere; K70.31 Alcoholic cirrhosis of liver with ascites
CPT/HCPCS: 36415; 36430; 36569; 49083; 51702; 71046; 80048; 80053; 80069; 81001; 82042; 82140; 82607; 82746; 82803; 82945; 82947; 83605; 83615; 83735; 83986; 84157; 84478; 84484; 85014; 85018; 85025; 85027; 85610; 85730; 86850; 86900; 86901; 86923; 87040; 87070; 87077; 87086; 87147; 87186; 87205; 89051; 92610; 93005; 93010; 93971; 93975; 94762; 96361-59; 96365-59; 96375-59; 97110; 97116; 97162; 97166; 97530; 97535; 99285-25; C1751; J0330; J0696; J1430; J1940; J1956; J2310; J2354; J2405; J2704; J2765; J3010; J7030; J7040; J7050; J7120; P9016; P9041; P9046; P9059

== ENCOUNTER 2018-08-05 15:07 | Day surgery (SDC) | payer OTHER ==
[~2018-08-05 15:07] MED LIST changes: +Acetaminophen325 M1 PO; +B-1100 MG PO; +Bumetanide2 MG PO; +CHLO25 PO; +CYAN1000I IM; +ESOM20 PO; +FOLI1 PO; +FURO40 PO; +Florastor250 MG PO; +GABA400 PO; +LACTULOSE20 GM/30 M PO; +LISI20 PO; +Nexium40 MG PO; +ROXICODONE5 MG PO; +SERT50 PO; +Spironolactone100 MG PO; +VITAMIN D350000 UNIT PO
== END 2018-08-05 23:01 | disposition home or self-care (01) ==
LOC: US 15:07
DX: K70.31 Alcoholic cirrhosis of liver with ascites (principal)
CPT/HCPCS: 49083

== ENCOUNTER 2018-08-26 14:56 | Emergency (ER) | payer OTHER ==
[~2018-08-26] VITALS: Ht 157.5 cm; Wt 105.2 kg
[2018-08-26 15:40] LABS: BASOPHILS ABSOLUTE AUTO 0.03 K/mm3 (0.00-0.23); BASOPHILS PERCENT AUTO 1 % (0-2); EOSINOPHILS ABSOLUTE AUTO 0.12 K/mm3 (0.00-0.68); EOSINOPHILS PERCENT AUTO 2 % (0-6); Hematocrit 35.7 % (37.0-53.0); Hemoglobin 11.5 g/dL (13.5-17.5); IMMATURE GRAN ABSOLUTE AUTO 0.02 K/mm3 (0.00-0.10); IMMATURE GRAN PERCENT AUTO 0 % (0-1); LYMPHOCYTES ABSOLUTE AUTO 1.54 K/mm3 (0.84-5.20); LYMPHOCYTES PERCENT AUTO 23 % (21-46); MONOCYTES ABSOLUTE AUTO 0.62 K/mm3 (0.16-1.47); MONOCYTES PERCENT AUTO 9 % (4-13); Mean Corpuscular HGB 29.9 pg (26.0-34.0); Mean Corpuscular HGB Conc 32.2 g/dL (31.5-36.5); Mean Corpuscular Volume 93 fL (80-100); NEUTROPHILS ABSOLUTE AUTO 4.24 K/mm3 (1.96-9.15); NEUTROPHILS PERCENT AUTO 65 % (41-73); Platelet Count 190 K/mm3 (150-400); RDW Coefficient Variation 14.2 % (11.7-14.2); RDW Standard Deviation 47.9 fL (35.1-46.3); Red Blood Cell Count 3.84 M/mm3 (4.30-5.90); White Blood Cell Count 6.57 K/mm3 (4.00-11.30)
[2018-08-26 15:54] LABS: International Normalized Ratio 1.02; Prothrombin Time Results 10.8 Sec (9.7-11.5)
[2018-08-26 16:05] LABS: Alanine Aminotransfer (ALT/SGP 10 U/L (12-78); Albumin, Blood 1.9 g/dL (3.4-5.0); Albumin/Globulin Ratio 0.4 (0.8-1.8); Alk Phos 102 U/L (50-136); Anion Gap 5 mmol/L (6-16); Aspartate Aminotrans (AST/SGOT 21 U/L (12-37); Bilirubin, Total 0.3 mg/dL (0.1-1.0); Blood Urea Nitrogen 12 mg/dL (8-24); Bun/Creatinine Ratio 16.9 (12.0-20.0); CO2, Blood 29 mmol/L (21-32); Calcium, Blood 7.7 mg/dL (8.5-10.1); Chloride, Blood 104 mmol/L (98-108); Creatinine, Blood 0.71 mg/dL (0.60-1.20); Globulin, Blood 4.3 g/dL (2.2-4.0); Glomerular Filtration Rate >60 (60-); Glucose, Blood 118 mg/dL (70-99); Sodium, Blood 138 mmol/L (136-145); Total Protein, Blood 6.2 g/dL (6.4-8.2)
== END 2018-08-26 19:11 | disposition home or self-care (01) ==
LOC: ER 14:56
PROVIDERS: Physician Assistant
DX: R18.8 Other ascites (principal); K72.90 Hepatic failure, unspecified without coma; I10 Essential (primary) hypertension; F17.210 Nicotine dependence, cigarettes, uncomplicated; Z79.899 Other long term (current) drug therapy
CPT/HCPCS: 36415; 49083; 80053; 85025; 85610; 96365-59; 99284-25; P9046

== ENCOUNTER 2018-09-04 15:05 | Day surgery (SDC) | payer OTHER | END 2018-09-04 22:52 | disposition home or self-care (01) | LOC: US 15:05 | DX: K74.60 Unspecified cirrhosis of liver (principal); R18.8 Other ascites | CPT/HCPCS: 36415; 49083; 85730 ==

== ENCOUNTER 2018-09-15 15:08 | Emergency (ER) | payer OTHER ==
[~2018-09-15] VITALS: Ht 188 cm; Wt 117.9 kg
[2018-09-15 16:46] LABS: BASOPHILS ABSOLUTE AUTO 0.05 K/mm3 (0.00-0.23); BASOPHILS PERCENT AUTO 1 % (0-2); EOSINOPHILS ABSOLUTE AUTO 0.17 K/mm3 (0.00-0.68); EOSINOPHILS PERCENT AUTO 2 % (0-6); Hematocrit 34.7 % (37.0-53.0); Hemoglobin 10.9 g/dL (13.5-17.5); IMMATURE GRAN ABSOLUTE AUTO 0.03 K/mm3 (0.00-0.10); IMMATURE GRAN PERCENT AUTO 0 % (0-1); LYMPHOCYTES ABSOLUTE AUTO 1.97 K/mm3 (0.84-5.20); LYMPHOCYTES PERCENT AUTO 22 % (21-46); MONOCYTES ABSOLUTE AUTO 0.73 K/mm3 (0.16-1.47); MONOCYTES PERCENT AUTO 8 % (4-13); Mean Corpuscular HGB 28.2 pg (26.0-34.0); Mean Corpuscular HGB Conc 31.4 g/dL (31.5-36.5); Mean Corpuscular Volume 90 fL (80-100); Mean Platelet Volume 9.7 fL (9.1-12.4); NEUTROPHILS ABSOLUTE AUTO 5.84 K/mm3 (1.96-9.15); NEUTROPHILS PERCENT AUTO 67 % (41-73); Platelet Count 202 K/mm3 (150-400); RDW Coefficient Variation 14.6 % (11.7-14.2); RDW Standard Deviation 47.3 fL (35.1-46.3); Red Blood Cell Count 3.87 M/mm3 (4.30-5.90); White Blood Cell Count 8.79 K/mm3 (4.00-11.30)
[2018-09-15 17:00] LABS: International Normalized Ratio 1.14; Prothrombin Time Results 11.9 Sec (9.7-11.5)
[2018-09-15 17:07] LABS: Alanine Aminotransfer (ALT/SGP 12 U/L (12-78); Albumin, Blood 1.7 g/dL (3.4-5.0); Albumin/Globulin Ratio 0.4 (0.8-1.8); Alk Phos 99 U/L (50-136); Anion Gap 4 mmol/L (6-16); Aspartate Aminotrans (AST/SGOT 16 U/L (12-37); Bilirubin, Total 0.4 mg/dL (0.1-1.0); Blood Urea Nitrogen 11 mg/dL (8-24); Bun/Creatinine Ratio 13.6 (12.0-20.0); CO2, Blood 28 mmol/L (21-32); Calcium, Blood 7.7 mg/dL (8.5-10.1); Chloride, Blood 105 mmol/L (98-108); Creatinine, Blood 0.81 mg/dL (0.60-1.20); Globulin, Blood 4.2 g/dL (2.2-4.0); Glomerular Filtration Rate >60 (60-); Glucose, Blood 84 mg/dL (70-99); Potassium, Blood 3.8 mmol/L (3.5-5.5); Sodium, Blood 137 mmol/L (136-145); Total Protein, Blood 5.9 g/dL (6.4-8.2)
[2018-09-16] MEDS ORDERED: ONDA4 PO (17:29)
[2018-09-16] MEDS ORDERED: Nexium40 MG PO (17:45)
[2018-09-16] MEDS ORDERED: Neurontin600 MG PO (17:46)
== END 2018-09-15 17:51 | disposition home or self-care (01) ==
LOC: ER 15:08
PROVIDERS: Physician Assistant
DX: K70.31 Alcoholic cirrhosis of liver with ascites (principal); Z88.5 Allergy status to narcotic agent; Z88.8 Allergy status to other drugs, medicaments and biological substances; Z79.899 Other long term (current) drug therapy; Z79.891 Long term (current) use of opiate analgesic; I10 Essential (primary) hypertension; F17.210 Nicotine dependence, cigarettes, uncomplicated
CPT/HCPCS: 36415; 80053; 85025; 85610; 96374; 99284-25; J3010

== ENCOUNTER 2018-09-16 15:00 | Day surgery (SDC) | payer OTHER ==
[2018-09-16] MEDS ORDERED: ONDA4 PO (17:29)
[2018-09-16] MEDS ORDERED: Nexium40 MG PO (17:45)
[2018-09-16] MEDS ORDERED: Neurontin600 MG PO (17:46)
== END 2018-09-16 19:21 | disposition home or self-care (01) ==
LOC: US 15:00
DX: K74.60 Unspecified cirrhosis of liver (principal); R18.8 Other ascites; F10.10 Alcohol abuse, uncomplicated; M48.061 Spinal stenosis, lumbar region without neurogenic claudication; I10 Essential (primary) hypertension; Z79.899 Other long term (current) drug therapy; Z88.5 Allergy status to narcotic agent; Z88.8 Allergy status to other drugs, medicaments and biological substances
CPT/HCPCS: 49083; 96365; 96366; P9046

== ENCOUNTER 2018-09-24 00:13 | Day surgery (SDC) | payer OTHER ==
[~2018-09-24 00:13] MED LIST changes: +Neurontin600 MG PO
== END 2018-09-24 18:50 | disposition home or self-care (01) ==
LOC: ATC 00:13 → US 00:13 → ATC 18:50
DX: K70.31 Alcoholic cirrhosis of liver with ascites (principal); I10 Essential (primary) hypertension; F32.9 Major depressive disorder, single episode, unspecified; F17.210 Nicotine dependence, cigarettes, uncomplicated; Z87.442 Personal history of urinary calculi; Z88.8 Allergy status to other drugs, medicaments and biological substances; Z88.5 Allergy status to narcotic agent
CPT/HCPCS: 49083; 96365; 96366; P9041; P9046

== ENCOUNTER 2018-10-01 00:12 | Day surgery (SDC) | payer OTHER | END 2018-10-01 12:48 | disposition home or self-care (01) | LOC: US 00:12 → ATC 00:12 → US 09:00 → ATC 12:48 | DX: K70.31 Alcoholic cirrhosis of liver with ascites (principal); I10 Essential (primary) hypertension; F32.9 Major depressive disorder, single episode, unspecified; F17.210 Nicotine dependence, cigarettes, uncomplicated; Z87.442 Personal history of urinary calculi; Z88.5 Allergy status to narcotic agent; Z88.8 Allergy status to other drugs, medicaments and biological substances | CPT/HCPCS: 49083; 96365; P9046 ==

== ENCOUNTER 2018-10-08 09:14 | Day surgery (SDC) | payer OTHER | END 2018-10-08 13:42 | disposition home or self-care (01) | LOC: US 09:14 → ATC 09:14 | DX: K70.31 Alcoholic cirrhosis of liver with ascites (principal); I10 Essential (primary) hypertension; F17.210 Nicotine dependence, cigarettes, uncomplicated; Z87.442 Personal history of urinary calculi; Z88.5 Allergy status to narcotic agent; Z88.8 Allergy status to other drugs, medicaments and biological substances | CPT/HCPCS: 49083; 96365; 96366; P9046 ==

== ENCOUNTER 2018-10-15 00:15 | Day surgery (SDC) | payer OTHER | END 2018-10-15 12:20 | disposition home or self-care (01) | LOC: US 00:15 → ATC 00:15 → US 09:00 → ATC 12:20 | DX: K74.60 Unspecified cirrhosis of liver (principal); R18.8 Other ascites; I10 Essential (primary) hypertension; Z79.899 Other long term (current) drug therapy; Z88.8 Allergy status to other drugs, medicaments and biological substances; Z88.5 Allergy status to narcotic agent | CPT/HCPCS: 49083; 96365; P9041 ==

== ENCOUNTER 2018-10-22 11:18 | Day surgery (SDC) | payer OTHER | END 2018-10-22 13:30 | disposition home or self-care (01) | LOC: ATC 11:18 | DX: R18.8 Other ascites (principal); Z88.5 Allergy status to narcotic agent; Z79.899 Other long term (current) drug therapy | CPT/HCPCS: 49083; 96365; 96366; P9046 ==

== ENCOUNTER 2018-10-29 00:16 | Day surgery (SDC) | payer OTHER | END 2018-10-29 12:58 | disposition home or self-care (01) | LOC: ATC 00:16 → US 00:16 → ATC 12:58 | DX: K74.60 Unspecified cirrhosis of liver (principal); R18.8 Other ascites; Z88.5 Allergy status to narcotic agent; Z88.8 Allergy status to other drugs, medicaments and biological substances | CPT/HCPCS: 49083; 96365; P9041; P9046 ==

== ENCOUNTER 2018-11-05 00:04 | Day surgery (SDC) | payer OTHER ==
[2018-11-05 11:07] LABS: Automated BF WBC Count 0.108 K/mm3 (0-999); Body Fluid WBC Count 108 /mm3 (0-999)
[2018-11-05 11:55] LABS: RBC Count, Body Fluid 16 /mm3 (0-0)
[2018-11-05 11:56] LABS: Appearance, Body Fluid Clear (Clear); Color, Body Fluid L Yellow (None-Yellow)
[2018-11-05 12:07] LABS: Total Cell Count, Body Fluid 100
[2018-11-05 12:31] LABS: Albumin, Body Fluid 0.6 g/dL; Glucose, Body Fluid 96 mg/dL; Lactate Dehydrogenase, Body Fl 36 U/L; Protein, Body Fluid 1.3 g/dL
== END 2018-11-05 13:32 | disposition home or self-care (01) ==
LOC: US 00:04 → ATC 00:04 → US 09:00 → ATC 13:32
PROVIDERS: Internal Medicine Gastroenterology
DX: K74.60 Unspecified cirrhosis of liver (principal); R18.8 Other ascites; Z88.5 Allergy status to narcotic agent; Z88.8 Allergy status to other drugs, medicaments and biological substances
CPT/HCPCS: 49083; 82042; 82945; 83615; 84157; 87070; 87205; 89051; 96365; 96366; P9046

== ENCOUNTER 2018-11-12 00:07 | Day surgery (SDC) | payer OTHER | END 2018-11-12 13:12 | disposition home or self-care (01) | LOC: ATC 00:07 → US 00:07 → ATC 13:12 | DX: K74.60 Unspecified cirrhosis of liver (principal); R18.8 Other ascites; I10 Essential (primary) hypertension; Z88.5 Allergy status to narcotic agent; Z88.8 Allergy status to other drugs, medicaments and biological substances | CPT/HCPCS: 49083; 96365; P9046 ==

== ENCOUNTER 2018-11-19 00:36 | Day surgery (SDC) | payer OTHER ==
[2018-11-19 10:43] LABS: BASOPHILS ABSOLUTE AUTO 0.02 K/mm3 (0.00-0.23); BASOPHILS PERCENT AUTO 0 % (0-2); EOSINOPHILS ABSOLUTE AUTO 0.03 K/mm3 (0.00-0.68); EOSINOPHILS PERCENT AUTO 0 % (0-6); Hematocrit 36.1 % (37.0-53.0); Hemoglobin 11.5 g/dL (13.5-17.5); IMMATURE GRAN ABSOLUTE AUTO 0.03 K/mm3 (0.00-0.10); IMMATURE GRAN PERCENT AUTO 0 % (0-1); LYMPHOCYTES ABSOLUTE AUTO 2.16 K/mm3 (0.84-5.20); LYMPHOCYTES PERCENT AUTO 22 % (21-46); MONOCYTES ABSOLUTE AUTO 0.64 K/mm3 (0.16-1.47); MONOCYTES PERCENT AUTO 7 % (4-13); Mean Corpuscular HGB 29.8 pg (26.0-34.0); Mean Corpuscular HGB Conc 31.9 g/dL (31.5-36.5); Mean Corpuscular Volume 94 fL (80-100); Mean Platelet Volume 9.7 fL (9.1-12.4); NEUTROPHILS ABSOLUTE AUTO 6.79 K/mm3 (1.96-9.15); NEUTROPHILS PERCENT AUTO 70 % (41-73); Platelet Count 256 K/mm3 (150-400); RDW Coefficient Variation 17.5 % (11.7-14.2); RDW Standard Deviation 60.4 fL (35.1-46.3); Red Blood Cell Count 3.86 M/mm3 (4.30-5.90); White Blood Cell Count 9.67 K/mm3 (4.00-11.30)
[2018-11-19 10:56] LABS: International Normalized Ratio 1.1; Prothrombin Time Results 11.6 Sec (9.7-11.5)
[2018-11-19 11:08] LABS: Anion Gap 6 mmol/L (6-16); Blood Urea Nitrogen 18 mg/dL (8-24); Bun/Creatinine Ratio 16.2 (12.0-20.0); CO2, Blood 29 mmol/L (21-32); Calcium, Blood 7.9 mg/dL (8.5-10.1); Chloride, Blood 102 mmol/L (98-108); Creatinine, Blood 1.11 mg/dL (0.60-1.20); Glomerular Filtration Rate >60 (60-); Glucose, Blood 91 mg/dL (70-99); Potassium, Blood 4.3 mmol/L (3.5-5.5); Sodium, Blood 137 mmol/L (136-145)
== END 2018-11-19 13:43 | disposition home or self-care (01) ==
LOC: US 00:36 → ATC 00:36 → US 10:00 → ATC 13:43
PROVIDERS: Internal Medicine Gastroenterology
DX: R18.8 Other ascites (principal); K74.60 Unspecified cirrhosis of liver
CPT/HCPCS: 36415; 49083; 80048; 85025; 85610; 85730; 96365; 96366; P9046

== ENCOUNTER 2018-11-26 10:00 | Day surgery (SDC) | payer OTHER | END 2018-11-26 13:39 | disposition home or self-care (01) | LOC: US 10:00 → ATC 10:00 | DX: K70.31 Alcoholic cirrhosis of liver with ascites (principal); I10 Essential (primary) hypertension; F17.210 Nicotine dependence, cigarettes, uncomplicated; Z79.899 Other long term (current) drug therapy; Z88.5 Allergy status to narcotic agent; Z88.8 Allergy status to other drugs, medicaments and biological substances | CPT/HCPCS: 49083; 96365; P9041; P9046 ==

== ENCOUNTER 2018-12-24 14:07 | Day surgery (SDC) | payer OTHER ==
[~2018-12-24 14:07] MED LIST changes: +Aldactone100 MG PO; +ROXICODONE15 MG PO; -ROXICODONE5 MG PO; +SERT100 PO; -SERT50 PO; -Spironolactone100 MG PO
[2018-12-24 16:47] LABS: Automated BF WBC Count 0.149 K/mm3 (0-999); Body Fluid WBC Count 149 /mm3 (0-999)
[2018-12-24 17:07] LABS: Albumin, Body Fluid 0.8 g/dL; Amylase, Body Fluid 9 U/L; Glucose, Body Fluid 80 mg/dL; Lactate Dehydrogenase, Body Fl 96 U/L; Triglycerides, Body Fluid 80 mg/dL
[2018-12-24 17:14] LABS: RBC Count, Body Fluid 136 /mm3 (0-0)
[2018-12-24 17:15] LABS: Appearance, Body Fluid Hazy (Clear); Color, Body Fluid L Yellow (None-Yellow)
[2018-12-24 17:34] LABS: Total Cell Count, Body Fluid 100
== END 2018-12-24 22:57 | disposition home or self-care (01) ==
LOC: US 14:07
PROVIDERS: Internal Medicine Gastroenterology
DX: K74.60 Unspecified cirrhosis of liver (principal); R18.8 Other ascites; I10 Essential (primary) hypertension; F17.210 Nicotine dependence, cigarettes, uncomplicated; F10.10 Alcohol abuse, uncomplicated; Z79.899 Other long term (current) drug therapy; Z88.5 Allergy status to narcotic agent; Z88.8 Allergy status to other drugs, medicaments and biological substances
CPT/HCPCS: 49083; 82042; 82150; 82945; 83615; 84478; 87015; 87070; 87116; 87205; 87206; 88108; 89051

== ENCOUNTER 2018-12-27 15:16 | Inpatient (IN) | payer OTHER ==
[~2018-12-27] VITALS: Ht 188 cm; Wt 85.9 kg
[2018-12-27 16:15] LABS: BASOPHILS ABSOLUTE AUTO 0.04 K/mm3 (0.00-0.23); BASOPHILS PERCENT AUTO 1 % (0-2); EOSINOPHILS ABSOLUTE AUTO 0.01 K/mm3 (0.00-0.68); EOSINOPHILS PERCENT AUTO 0 % (0-6); Hematocrit 33.7 % (37.0-53.0); Hemoglobin 10.6 g/dL (13.5-17.5); IMMATURE GRAN ABSOLUTE AUTO 0.06 K/mm3 (0.00-0.10); IMMATURE GRAN PERCENT AUTO 1 % (0-1); LYMPHOCYTES ABSOLUTE AUTO 1.61 K/mm3 (0.84-5.20); LYMPHOCYTES PERCENT AUTO 19 % (21-46); MONOCYTES ABSOLUTE AUTO 0.73 K/mm3 (0.16-1.47); MONOCYTES PERCENT AUTO 9 % (4-13); Mean Corpuscular HGB 31.2 pg (26.0-34.0); Mean Corpuscular HGB Conc 31.5 g/dL (31.5-36.5); Mean Corpuscular Volume 99 fL (80-100); Mean Platelet Volume 9.3 fL (9.1-12.4); NEUTROPHILS ABSOLUTE AUTO 6.18 K/mm3 (1.96-9.15); NEUTROPHILS PERCENT AUTO 72 % (41-73); Platelet Count 482 K/mm3 (150-400); RDW Coefficient Variation 16.6 % (11.7-14.2); RDW Standard Deviation 59.7 fL (35.1-46.3); White Blood Cell Count 8.63 K/mm3 (4.00-11.30)
[2018-12-27 16:41] LABS: Alanine Aminotransfer (ALT/SGP 15 U/L (12-78); Albumin, Blood 1.9 g/dL (3.4-5.0); Albumin/Globulin Ratio 0.4 (0.8-1.8); Alk Phos 195 U/L (50-136); Anion Gap 5 mmol/L (6-16); Aspartate Aminotrans (AST/SGOT 29 U/L (12-37); Bilirubin, Total 0.6 mg/dL (0.1-1.0); Blood Urea Nitrogen 20 mg/dL (8-24); Bun/Creatinine Ratio 25.3 (12.0-20.0); CO2, Blood 29 mmol/L (21-32); Calcium, Blood 8.4 mg/dL (8.5-10.1); Chloride, Blood 100 mmol/L (98-108); Creatinine, Blood 0.79 mg/dL (0.60-1.20); Globulin, Blood 4.3 g/dL (2.2-4.0); Glomerular Filtration Rate >60 (60-); Glucose, Blood 94 mg/dL (70-99); Potassium, Blood 5.2 mmol/L (3.5-5.5); Sodium, Blood 134 mmol/L (136-145); Total Protein, Blood 6.2 g/dL (6.4-8.2)
[2018-12-27 16:45] LABS: International Normalized Ratio 0.94
[2018-12-27] MEDS ORDERED: Zolpidem Tartrat5 MG PO (18:31)
--- NOTE | 2018-12-27 21:00 | NUR ---
ADMIT PT ARRIVES TO PCU 5 FROM ER VIA [facility] AT APPROXIMATELY 2100 THIS EVENING. PT AMBULATES FROM [facility] TO HOSPITAL BED WITH MINIMAL DIFFICULTY. PT IS AOX4. VSS. VERY PLEASANT. CURRENTLY REPORTING PAIN TO BACK, HIP, AND ABDOMEN WITH A LEVEL OF 7/10 ON THE PAIN SCALE. REPORTS MEDICATION GIVEN IN ER NOT EFFECTIVE ENOUGH TO DECREASE PAIN TO TOLERABLE LEVEL. NG TUBE NOTED TO L NARES THAT HAS BEEN IN PLACE FOR APPROXIMATELY 2 WEEKS PER PT REPORT. ABDOMEN SOFT AND TENDER ON PALPATION, DENIES NAUSEA. LUNG SOUNDS CLEAR. SANDOSTATIN INFUSING CURRENTLY AT 25 ML/HR. PT ORIENTED TO ROOM AND CALL LIGHT SYSTEM, ENCOURAGED TO CALL FOR ASSISTANCE. WILL CONTINUE TO ADMISSION AND MONITORING. BED IN LOW POSITION, CALL LIGHT IN REACH.
[2018-12-27] MEDS ORDERED: ROXICODONE5 MG PO (21:04)
[2018-12-27 21:19] LABS: Hematocrit 29.3 % (37.0-53.0); Hemoglobin 9.3 g/dL (13.5-17.5)
--- NOTE | 2018-12-27 22:00 | NUR ---
PROVIDER CONTACTED PT CONTINUES TO HAVE PAIN THAT IS NO RELEIVED WITH ORDERED MEDICATIONS. PT REQUESTING HOME PAIN MED REGIMEN. DR DEY CONTACTED AND ORDERS RECEIVED FOR HOME DOSE OF ROXICODONE. PT NOTED TO HAVE HYDROMORPHONE ALLERGY, BUT REPORTS THAT OXYCODONE IS OK TO TAKE WITHOUT REACTION. WILL INPUT ORDERS AND ADMINISTER.
--- NOTE | 2018-12-27 23:00 | NUR ---
PROVIDER CONTACTED PT REQUESTING HOME DOSE AMBIEN, STATING HE IS UNABLE TO SLEEP WITHOUT IT. DR DEY CONTACTED AND ORDERS RECEIVED FOR AMBIEN 5MG. WILL INPUT AND ADMINISTER.
[2018-12-27 23:16] LABS: Source, Urine Clean Catch
[2018-12-27 23:29] LABS: Appearance, Urine Clear (Clear); Bilirubin, Urine Neg (Neg); Blood, Urine 2+ (Neg); Color, Urine Amber (P-Yellow); Glucose Qualitative, Urine Neg (Neg); Ketones, Urine 1+ (Neg); Leukocyte Esterase, Urine 1+ (Neg); Nitrite, Urine Neg (Neg); Protein, Urine 2+ (Neg); Urobilinogen, Urine 2+ (Normal)
[2018-12-27 23:36] LABS: Bacteria Many /hpf; Mucus Heavy (0-Heavy); Red Blood Cells, Urine 0-2 /hpf (0-2); Squamous Epithelial Cells Few /hpf (Few)
[2018-12-28 04:16] LABS: Hematocrit 23.4 % (37.0-53.0); Hemoglobin 7.4 g/dL (13.5-17.5); Mean Corpuscular HGB 31.9 pg (26.0-34.0); Mean Corpuscular HGB Conc 31.6 g/dL (31.5-36.5); Mean Corpuscular Volume 101 fL (80-100); Mean Platelet Volume 9.6 fL (9.1-12.4); Platelet Count 265 K/mm3 (150-400); RDW Coefficient Variation 16.6 % (11.7-14.2); RDW Standard Deviation 60.2 fL (35.1-46.3); Red Blood Cell Count 2.32 M/mm3 (4.30-5.90); White Blood Cell Count 5.72 K/mm3 (4.00-11.30)
[2018-12-28 04:35] LABS: Alanine Aminotransfer (ALT/SGP 10 U/L (12-78); Albumin, Blood 1.7 g/dL (3.4-5.0); Albumin/Globulin Ratio 0.6 (0.8-1.8); Alk Phos 132 U/L (50-136); Anion Gap 4 mmol/L (6-16); Aspartate Aminotrans (AST/SGOT 14 U/L (12-37); Bilirubin, Total 0.4 mg/dL (0.1-1.0); Blood Urea Nitrogen 16 mg/dL (8-24); Bun/Creatinine Ratio 20.5 (12.0-20.0); CO2, Blood 27 mmol/L (21-32); Calcium, Blood 7.4 mg/dL (8.5-10.1); Chloride, Blood 107 mmol/L (98-108); Creatinine, Blood 0.78 mg/dL (0.60-1.20); Globulin, Blood 2.8 g/dL (2.2-4.0); Glomerular Filtration Rate >60 (60-); Glucose, Blood 87 mg/dL (70-99); Potassium, Blood 5.5 mmol/L (3.5-5.5); Sodium, Blood 138 mmol/L (136-145); Total Protein, Blood 4.5 g/dL (6.4-8.2)
--- NOTE | 2018-12-28 05:00 | NUR ---
PROVIDER CONTACTED PT WITH HGB OF 7.4 THIS AM, DOWN FROM 9.3 @ [address] RAZO CONTACTED AND ORDERS RECIEVED TO TRASNFUSE ON UNIT PRBCs THIS AM. ORDERS INPUT AND AWAITING ARRIVAL OF BLOOD SLIP FOR VERIFICATION. PT AGREEABLE TO TRANSFUSION AND SIGNED BLOOD RELEASE IN CHART.
--- NOTE | 2018-12-28 07:00 | NUR ---
SHIFT SUMMARY PT HAS REMAINED AOX4 THORUGHOUT SHIFT. VSS. PLEASANT AND COOPERATIVE WITH CARE. PT CONTINUES TO AMBULATE WITH STANDBY ASSIST TO BATHROOM. PT WITH TWO BMs THROUGHOUT THE NIGHT, LAST ONE WAS BROWN WITH NO SIGNS OF BLOOD. MEDICATED MULTIPLE TIMES THROUGHOUT THE NIGHT FOR PAIN THAT IS CHRONIC. REPORTS SOME DISCOMFORT TO ABDOMEN THAT HAS DISSIPATED THROUGHOUT THE NIGHT. SANDOSTATIN CONTINUES TO INFUSE AT 25 ML/HR AND FLUIDS @ 75 ML/HR. BLOOD TRANSFUSING AT 125 ML/HR CURRENTLY. PT TOLERATING WELL. NO OTHER CHANGES NOTED FROM INITIAL ASSESSMENT. WILL CONTINUE TO MONITOR AND REPORT TO ONCOMING SHIFT RN. BED IN LOW POSITION, CALL LIGHT IN REACH.
--- NOTE | 2018-12-28 07:30 | NUR ---
ASSUMED CARE: PT RESTING QUIETLY AT THIS TIME. NO ACUTE NEEDS OR CONCERNS NOTED
--- NOTE | 2018-12-28 09:20 | NUR ---
DR LEPE CAME TO SEE PT. PLANNING TO TAKE FOR SCOPE THIS AM. NPO AFTER BREAKFAST. INSTRUCTED TO HOLD MEDS UNTIL AFTER SCOPE BECAUSE PT HAS DOBHOFF IN PLACE. ASKED ABOUT XRAY TO CONFIRM PLACEMENT BUT DR SAYS HE WILL DO ONE AFTER SCOPE SO OK TO HOLD MEDS UNTIL THEN. PT AWARE AND OK WITH THIS PLAN
[2018-12-28 10:23] LABS: Hematocrit 27.4 % (37.0-53.0); Hemoglobin 8.7 g/dL (13.5-17.5)
--- NOTE | 2018-12-28 14:46 | NUR ---
PT TAKEN TO DAY SURGERY AT THIS TIME.
--- NOTE | 2018-12-28 14:48 | NUR ---
PT TO SDS. AGREES WITH PLANNE PROCEDURE.
--- NOTE | 2018-12-28 15:13 | NUR ---
12/28/18 1513 Chrissie Palencia MAC CASE WITH DR MACK
--- NOTE | 2018-12-28 15:49 | NUR ---
PT RETURNED FROM DAY SURGERY WITH DOBHOFF OUT. AV MURILLO STATED THAT DR LEPE WOULD BE UP TO SEE PT AFTER PROCEDURE BUT WOULD TELL DR LEPE TO CALL RN DUE TO QUESTIONS ABOUT FURTHER ORDERS. DISCUSSED WITH PLANISHER
--- NOTE | 2018-12-28 16:39 | NUR ---
DR LEPE CAME TO UNIT AND STATES TO KEEP DOBHOFF OUT THIS PM. ORDERS TO CHANGE MEDS TO LIQUID OR IV ABLE AND HOLD THE REST. PT AWARE
[2018-12-28 17:54] LABS: Hematocrit 31.7 % (37.0-53.0)
--- NOTE | 2018-12-28 18:34 | NUR ---
SHIFT SUMMARY: PT HAS HAD UPPER EGD DONE THAT WAS INCOMPLETE BECAUSE PT HAD STRICTURE IN STOMACH THAT THEY WERE UNABLE TO GET THROUGH PER DAY SURG NURSE. PT RECIEVED 1 UNIT PRBCS TODAY WITH IMPROVED H AND H. DOBHOFF REMOVED DURING PROCEDURE WITH ORDERS TO KEEP OUT TONIGHT AND ADMINISTER ORAL MEDS ABLE. MEDS THAT COULD BE CHANGED TO LIQUID OR IV WERE. FAMILY AT BEDSIDE. NO FURTHER NEEDS OR CONCERNS AT THIS TIME.
--- NOTE | 2018-12-28 20:24 | NUR ---
PROVIDER CONTACTED PT WITH INCREASED PAIN LEVEL THAT IS NOT RELEIVED WITH ADMINISTERED PAIN MEDICATION. PT REQUESTING ADDITIONAL DOSE. DR DEY CONTACTED AND ORDERS RECEIVED FOR ONE ADDITIONAL DOSE ROXICODONE 10MG PO. WILL INPUT ORDER AND ADMINISTER.
--- NOTE | 2018-12-29 06:42 | NUR ---
SHIFT SUMMARY PT HAS REMAINED AOX4 THROUHGOUT SHIFT. VSS. COOPERATIVE WITH CARE. PT CONTINUES TO AMBULATE WITH STANDBY ASSIST TO BATHROOM. MEDICATED MULTIPLE TIMES FOR PAIN THROUGHOUT THE NIGHT THAT DOES NOT DECREASE SIGNIFICANTLY WITH ORDERED PAIN REGIMEN. PT WITH MULTIPLE AILMENTS THROUGHOUT THE NIGHT INCLUDING INCREASED PAIN TO LOWER ABDOMEN, PAIN TO BUTTOCKS WHERE HEALING WOUNDS ARE, PAIN TO R EYE WITH RHEUM NOTED, PAIN TO THROAT, AND PAIN TO PENIS WITH WHAT APPEARS TO BE EXCORIATIONS. EXTENSIVE TIME SPENT ADDRESSING CONCERNS AND PROVIDING INTERVENTIONS SUCH WOUND CARE, REPOSITIONING AND HEAT/COOL THERAPY IN ADDITION TO PAIN MED REGIMEN. PT TOLERATED CLEAR LIQUID DIET AND LIQUID MEDICATIONS WELL. SANDOSTATIN DRIP CONTINUES TO INFUSE AT ORDERED RATE. STOOL REMAINS BROWN THROUGHOUT THE NIGHT. NO OTHER CHANGES NOTED FROM INITIAL ASSESSMENT. WILL CONTINUE TO MONITOR AND REPORT TO ONCOMING SHIFT RN. BED IN LOW POSITION, CALL LIGHT IN REACH. INITIAL ASSESSMENT.
--- NOTE | 2018-12-29 10:47 | NUR ---
REPORT TO MEDICAL FLOOR RN
--- NOTE | 2018-12-29 11:19 | NUR ---
CONSENT WAS OBTAINED FROM THE PT AT 0730AM. CC
--- NOTE | 2018-12-29 11:25 | NUR ---
Assumed care of patient Patient transferred from PCU to [place] [id number] via bed, recieved report from CHIDI Cruz. Pt A/Ox3, settled in room, and call light near. Pt up in room and SBA to the bathroom d/t IV. Bed in lowest position.
--- NOTE | 2018-12-29 14:28 | NUR ---
Physician notified This RN called Dr. Sands to request change of Oxycodone Per Tube to Sublingual Received orders to change route of Oxy and d/c Ocreotide.
--- NOTE | 2018-12-29 15:34 | NUR ---
Dr. Barajas's office called and notified this RN of Dr. Barajas changing patient's diet to FULL liq starting this evening.
--- NOTE | 2018-12-29 16:45 | NUR ---
Shift Summary A/Ox4, pleasant and cooperative. Pt has been phoning Dr. Barajas's office requesting to change diet, diet has been advanced to Full liquid this evening per Dr. Barajas. Pt tolerating PO meds and Full liquid well. Denies N/V. Per patient, he has had a total of 4 bowel movements today and declining to take the night dose of lactulose. Medicated for abdominal 8/10 pain per EMAR x 2 so far, pain scale only decreased to 6/10 the lowest. No other concerns at this time.
--- NOTE | 2018-12-29 17:51 | NUR ---
Physician notified Dr. Sands notified of patient request for GasX. Orders received.
[2018-12-30 05:16] LABS: Alanine Aminotransfer (ALT/SGP 14 U/L (12-78); Albumin/Globulin Ratio 0.5 (0.8-1.8); Alk Phos 154 U/L (50-136); Anion Gap 6 mmol/L (6-16); Aspartate Aminotrans (AST/SGOT 13 U/L (12-37); Bilirubin, Total 0.3 mg/dL (0.1-1.0); Blood Urea Nitrogen 15 mg/dL (8-24); Bun/Creatinine Ratio 17.2 (12.0-20.0); CO2, Blood 25 mmol/L (21-32); Calcium, Blood 7.8 mg/dL (8.5-10.1); Chloride, Blood 105 mmol/L (98-108); Creatinine, Blood 0.87 mg/dL (0.60-1.20); Globulin, Blood 3.8 g/dL (2.2-4.0); Glomerular Filtration Rate >60 (60-); Glucose, Blood 155 mg/dL (70-99); Potassium, Blood 4.5 mmol/L (3.5-5.5); Sodium, Blood 136 mmol/L (136-145); Total Protein, Blood 5.8 g/dL (6.4-8.2)
--- NOTE | 2018-12-30 05:49 | NUR ---
12/30/18 0550 PT SLEEPING. HE HAS BEEN AWAKE ON AND OFF THROUGHOUT NIGHT. STATES THIS IS NORMAL FOR HIM "DUE TO THE PAIN". VITALS ARE GOOD THIS AM. PT EATS AND DRINKS OFTEN. UP AND AROUND IN ROOM WITHOUT ANY PROBLEMS.
[2018-12-30 11:00] LABS: Body Fluid WBC Count 180 /mm3 (0-999)
[2018-12-30 11:08] LABS: Albumin, Body Fluid 0.7 g/dL
[2018-12-30 11:09] LABS: Amylase, Body Fluid 12 U/L; Glucose, Body Fluid 104 mg/dL; Protein, Body Fluid 1.7 g/dL; Triglycerides, Body Fluid 39 mg/dL
[2018-12-30 11:42] LABS: RBC Count, Body Fluid 106 /mm3 (0-0)
[2018-12-30 12:05] LABS: Color, Body Fluid L Yellow (None-Yellow); Total Cell Count, Body Fluid 100
[2018-12-30 12:06] LABS: Appearance, Body Fluid Clear (Clear)
[2018-12-30] MEDS ORDERED: Gas Relief80 MG PO (12:54)
[2018-12-30] MEDS ORDERED: SUCR1 PO (12:55)
--- NOTE | 2018-12-30 16:05 | NUR ---
discharge PT HAD PARACENTESIS THIS AM, 6.7 L FLUID TAKEN OFF, LAB SPECIMEN SENT. PHARMACY DOSE IV ALBUMEN, GIVEN. DR LLANES IN TO SEE PT, PLACE D/C ORDERS. IV SITES D/C'D. SCRIPTS FAXED TO [facility]/REQUEST. F/U APPT W DR ZAMORA SCHEDULED. D/C INSTRUCT REVIEWED W PT. SON IN FOR TRANSPORT HOME. PT PLEASANT/APPRECIATIVE.
== END 2018-12-30 14:45 | disposition home or self-care (01) | DRG 378 ==
LOC: ER 15:16 → PCU 15:17 → MEDS 12-29 11:14 → ENPENDDIS 12-30 11:13 → MEDS 12-30 14:45
PROVIDERS: Internal Medicine Gastroenterology; Physician Assistant; ADMIT Internal Medicine
PROC: 0DJ08ZZ Inspection of Upper Intestinal Tract, Via Natural or Artificial Opening Endoscopic (ICD-10-PCS; principal; 2018-12-28 15:30)
DX: K28.4 Chronic or unspecified gastrojejunal ulcer with hemorrhage (principal); N39.0 Urinary tract infection, site not specified; F10.27 Alcohol dependence with alcohol-induced persisting dementia; K70.31 Alcoholic cirrhosis of liver with ascites; D50.0 Iron deficiency anemia secondary to blood loss (chronic); I10 Essential (primary) hypertension; K21.9 Gastro-esophageal reflux disease without esophagitis; Z98.84 Bariatric surgery status; F17.210 Nicotine dependence, cigarettes, uncomplicated; B96.20 Unspecified Escherichia coli [E. coli] as the cause of diseases classified elsewhere
CPT/HCPCS: 36415; 36430; 49083; 80053; 81001; 82042; 82150; 82247; 82272; 82945; 83605; 84157; 84478; 85014; 85018; 85025; 85027; 85610; 85730; 86850; 86900; 86901; 86923; 87040; 87070; 87086; 87205; 88108; 89051; 93005; 93010; 96361; 96365; 96366; 96375; 96376; 99285-25; G0378; J0696; J1630; J2354; J2405; J2704; J3010; J3411; J7030; J7050; J7120; P9016; P9046

== ENCOUNTER 2019-01-07 10:10 | Day surgery (SDC) | payer OTHER ==
[~2019-01-07 10:10] MED LIST changes: +Gas Relief80 MG PO; +ROXICODONE5 MG PO; +Zolpidem Tartrat5 MG PO
== END 2019-01-07 12:56 | disposition home or self-care (01) ==
LOC: US 10:10
DX: K70.31 Alcoholic cirrhosis of liver with ascites (principal); F10.188 Alcohol abuse with other alcohol-induced disorder; I10 Essential (primary) hypertension; F17.210 Nicotine dependence, cigarettes, uncomplicated; F34.1 Dysthymic disorder; Z88.5 Allergy status to narcotic agent; Z88.8 Allergy status to other drugs, medicaments and biological substances; Z79.899 Other long term (current) drug therapy
CPT/HCPCS: 49083; P9046

== ENCOUNTER 2019-01-21 08:22 | Day surgery (SDC) | payer OTHER | END 2019-01-22 22:52 | disposition home or self-care (01) | LOC: US 08:22 | DX: R18.8 Other ascites (principal) | CPT/HCPCS: 49083 ==